=== PATIENT | female | born 1955 | race Caucasian/White ===

== ENCOUNTER 2018-03-28 10:23 | Outpatient (CLI) | payer OTHER | END 2018-03-28 10:24 | disposition home or self-care (01) | LOC: DTY/OP 10:23 | PROVIDERS: ATTEND Specialist | DX: Z01.818 Encounter for other preprocedural examination (principal); E66.01 Morbid (severe) obesity due to excess calories | CPT/HCPCS: 97802 ==

== ENCOUNTER 2018-05-18 12:30 | Inpatient (IN) | payer MEDICARE, BC ==
[2018-05-18 12:16] VITALS: BMI 48.7
[2018-05-22] MEDS ORDERED: Heparin 5,000 UNITS/ML VIAL ONE (06:02)
[2018-05-22] MEDS ORDERED: Ketorolac Tromethamine 30 MG/ML VIAL ONE (06:02)
[2018-05-22] MEDS ORDERED: Scopolamine 1.5 mg/72 hour Patch ONE (06:02)
[2018-05-22] MEDS ORDERED: Bupivacaine/Epinephrine 0.25% 30 ML VIAL ONE (06:28)
[2018-05-22] MEDS ORDERED: Fentanyl 250 MCG/5 ML VIAL ONE (06:30)
[2018-05-22] MEDS ORDERED: cefOXitin Sodium/Dextrose,Iso 2 GM in Premix Bag 1 BAG IVPB SCH (06:45)
--- NOTE | 2018-05-22 07:26 | RAD ---
2 VIEWS CHEST: Date: 05/22/18 HISTORY: Preoperative radiograph. FINDINGS: Two views of the chest show normal sized cardiomediastinal silhouette. There is no evidence of consol idation, mass, or pleural effusion. Degenerative changes are seen in the spine. IMPRESSION: No evidence of acute cardiopulmonary disease. POS: [facility]
[2018-05-22 07:33] LABS: Hemoglobin 15.1 g/dL (12.0-16.0); Mean Corpuscular HGB CONC 33.7 g/dL (32.0-36.0); Mean Corpuscular Hemoglobin 34.1 pg (27.0-31.0); Mean Platelet Volume 9.5 fL (7.4-10.4); Platelet Count 206 thou/uL (130-400); RBC Distribution Width 11.4 % (11.5-14.5); Red Blood Cell (RBC) Count 4.44 mill/uL (4.20-5.40); White Blood Cell (WBC) Count 5.9 thou/uL (4.8-10.8)
[2018-05-22] MEDS ORDERED: Levofloxacin 500 mg/D5W 100 ml Premix Bag ONE (07:48)
[2018-05-22 07:57] LABS: Anion Gap 17 mmol/L (10-20); BUN (Urea Nitrogen) 12 mg/dL (9.8-20.1); Calc. Creatinine Clearance 106 mL/min (70-130); Calcium 9.7 mg/dL (7.8-10.44); Carbon Dioxide 26 mmol/L (23-31); Chloride 97 mmol/L (98-107); Estimated GFR-MDRD 51; Glucose 89 mg/dL (80-115); Potassium 3.5 mmol/L (3.5-5.1); Sodium 136 mmol/L (136-145)
[2018-05-22] MEDS ORDERED: Ondansetron HCl/PF 4 MG/2 ML Vial IVP PRN (08:56)
[2018-05-22] MEDS ORDERED: Promethazine HCl 25 MG/ML VIAL IM PRN ×2 (08:56→12:06)
[2018-05-22] MEDS ORDERED: Promethazine HCl 25 MG/ML VIAL SLOW IVP PRN (08:56)
[2018-05-22] MEDS ORDERED: Fentanyl 100 MCG/2 ML VIAL ONE ×3 (09:35→10:49)
[2018-05-22] MEDS ORDERED: Promethazine HCl 25 MG/ML VIAL ONE (09:46)
[2018-05-22] MEDS ORDERED: HYDROmorphone 2 MG/ML VIAL ONE (10:50)
[2018-05-22] MEDS ORDERED: hydrALAZINE 20 MG/ML VIAL SLOW IVP PRN (12:06)
[2018-05-22] MEDS ORDERED: Dextrose 50% Abboject 50 ML SYRINGE SLOW IVP PRN (12:06)
[2018-05-22] MEDS ORDERED: diphenhydrAMINE 50 MG/ML VIAL IVP PRN (12:06)
[2018-05-22] MEDS ORDERED: Morphine 4 MG/ML VIAL SLOW IVP PRN (12:06)
[2018-05-22] MEDS ORDERED: Dextrose 5% in Water 1,000 ML IV PRN (12:06)
[2018-05-22] MEDS: D5 1/2 NS w/20 mEq KCL 1,000 ML IV SCH ×2 (12:53→19:34)
[2018-05-22] MEDS: Acetaminophen 1,000 MG in Premix Bag 1 BAG IVPB SCH ×3 (12:56→23:01)
[2018-05-22] MEDS: Ketorolac Tromethamine 30 MG/ML VIAL IVP SCH ×3 (12:57→23:01)
[2018-05-22] MEDS: Ondansetron PF 4 MG/2 ML Vial IVP PRN ×2 (13:43→22:14)
[2018-05-22] MEDS ORDERED: Ondansetron PF 4 MG/2 ML Vial ONE (15:12)
[2018-05-22] MEDS ORDERED: PHENYLEPHRINE-NS 100 MCG/ML 10 ML SYRINGE ONE (15:12)
[2018-05-22] MEDS ORDERED: Dexamethasone 20 MG/5 ML VIAL ONE (15:12)
[2018-05-22] MEDS ORDERED: Lidocaine 1% PF 5 ML VIAL ONE (15:12)
[2018-05-22] MEDS ORDERED: PROPOFOL 200 MG/20 ML VIAL ONE (15:12)
[2018-05-22] MEDS ORDERED: Rocuronium Bromide 10 MG/ML (10ML VIAL) ONE (15:12)
[2018-05-22] MEDS ORDERED: ePHEDrine 50 MG/ML VIAL ONE (15:12)
[2018-05-22] MEDS ORDERED: Glycopyrrolate 0.2 MG/ML 5 ML SYRINGE ONE (15:12)
[2018-05-22] MEDS: Morphine 4 MG/ML VIAL SLOW IVP PRN (19:01)
[2018-05-22] MEDS: Enoxaparin Sodium 40 MG/0.4 ML SYRINGE SC SCH (19:34)
[2018-05-23] MEDS: Morphine 4 MG/ML VIAL SLOW IVP PRN ×2 (02:58→16:53)
[2018-05-23] MEDS: D5 1/2 NS w/20 mEq KCL 1,000 ML IV SCH ×4 (04:13→23:12)
[2018-05-23] MEDS: Ketorolac Tromethamine 30 MG/ML VIAL IVP SCH (05:04)
[2018-05-23] MEDS: Acetaminophen 1,000 MG in Premix Bag 1 BAG IVPB SCH ×4 (05:05→23:12)
[2018-05-23 05:20] LABS: #Lymphocytes 0.9 thou/uL (1.20-3.40); #Monocytes 1.3 thou/uL (0.11-0.59); #Neutrophils 10.4 thou/uL (1.40-6.50); %Basophils 0.1 % (0.0-1.0); %Eosinophils 0.1 % (0.0-10.0); %Lymphocytes 7.2 % (21.0-51.0); %Monocytes 10.1 % (0.0-10.0); %Neutrophils 82.3 % (42.0-75.0); Hemoglobin 12.1 g/dL (12.0-16.0); Mean Corpuscular HGB CONC 32.9 g/dL (32.0-36.0); Mean Corpuscular Hemoglobin 34.2 pg (27.0-31.0); Mean Platelet Volume 9.3 fL (7.4-10.4); Platelet Count 206 thou/uL (130-400); RBC Distribution Width 11.4 % (11.5-14.5); Red Blood Cell (RBC) Count 3.53 mill/uL (4.20-5.40); White Blood Cell (WBC) Count 12.7 thou/uL (4.8-10.8)
[2018-05-23 05:43] LABS: Anion Gap 12 mmol/L (10-20); BUN (Urea Nitrogen) 17 mg/dL (9.8-20.1); Calc. Creatinine Clearance 70 mL/min (70-130); Calcium 8.5 mg/dL (7.8-10.44); Carbon Dioxide 23 mmol/L (23-31); Chloride 98 mmol/L (98-107); Estimated GFR-MDRD 32; Glucose 168 mg/dL (80-115); Potassium 4.4 mmol/L (3.5-5.1); Sodium 129 mmol/L (136-145)
--- NOTE | 2018-05-23 08:28 | PRG ---
DATE OF SERVICE: 05/23/2018 SUBJECTIVE: Ms. Wu is postoperative day #1 from laparoscopic sleeve gastrectomy. She is having a tougher time than most patients after the surgery. She had significant nausea yesterday and felt dizzy when she would try to walk. She really has not walked out of her room thus far. She also has not done much with clear liquids. She has been started on ice chips and is taking sips of water, but not any significant volume. Additionally, she has been able unable to void spontaneously and has had to have catheterization performed twice. She denies any severe pain at this time. She did have some narcotics overnight. PHYSICAL EXAMINATION: VITAL SIGNS: On examination, her pulse is 97, blood pressure 97/57, temperature is 98.5. LUNGS: Clear to auscultation. ABDOMEN: Soft. Bowel sounds are hypoactive. Incisions are healing nicely. LABORATORY DATA: Electrolytes reveal her sodium is low at 129. Other electrolytes are normal. Her creatinine has jumped from 1.08 to 1.62. Her hemoglobin is 12.1. White blood cell count is 12.7. ASSESSMENT: The patient is making slower than typical progress after a sleeve gastrectomy. I have encouraged her to try to increase her clear liquid intake and to try to ambulate. I will get a physical therapy consult to help her ambulate with a walker. Hopefully, she will be able to void on her own today. If she does not after another time or 2 then I will need to place a Leung catheter. Job ID: [id number]
[2018-05-23] MEDS: Pantoprazole 40 MG VIAL IVP SCH (08:41)
--- NOTE | 2018-05-23 12:42 | OP ---
DATE OF PROCEDURE: 05/22/2018 PREOPERATIVE DIAGNOSIS: Morbid obesity. POSTOPERATIVE DIAGNOSIS: Morbid obesity PROCEDURE PERFORMED: Laparoscopic vertical sleeve gastrectomy using the ViSiGi device. PUTTY WORKER: Jerilyn Bravo MS-3 ANESTHESIA: General endotracheal. INDICATIONS: The patient is morbidly obese 63-year-old white female. She has undergone thorough preoperative evaluation and education, presents at this time for vertical sleeve gastrectomy. DESCRIPTION OF OPERATION: Informed consent was obtained. The patient was taken to the operating room where general endotracheal anesthesia was obtained with the patient in supine position. Abdomen was prepped with ChloraPrep and draped in sterile fashion. Local anesthetic was infiltrated and 5 mm supraumbilical incision was created through which Veress needle was passed to the peritoneal cavity and pneumoperitoneum established using carbon dioxide up to a pressure of 15 mmHg. A 5 mm trocar port was passed through this same incision. Laparoscopic camera was passed through this port. Under direct vision, 4 additional ports were placed including bilateral 5 mm subcostal ports, a 12 mm right paramedian port and a 15 mm left paramedian port. A 5 mm epigastric incision was created through which Nathansen retractor was passed into the abdominal cavity and used to retract the left lobe of the liver. The patient was placed into reverse Trendelenburg position. The ViSiGi device was advanced within the stomach and used to decompress this. The pylorus was identified and beginning 4 cm proximal to the pylorus, the omentum and vascular tissue along the greater curvature was divided using the LigaSure in an ascending fashion up to the angle of His. All posterior adhesions were mobilized. The short gastric vessels were carefully divided and then hemostasis was maintained using the LigaSure. Once this was completely mobilized, the ViSiGi was carefully positioned at the level of the pylorus and placed to suction, which was clearly defining the lesser curvature of the stomach. The gastrectomy was then performed using a series of fires of the [place] stapler using a green load followed by a gold load and a series of blue loads until completion of the gastrectomy. The ViSiGi along the lesser curvature was used as a size 36 bougie to guide in the gastric division. Care was taken to avoid narrowing the incisura or the gastroesophageal junction. The integrity of the staple line was then assessed by insufflating gas through the ViSiGi while irrigating along the staple line. There was no evidence of an air leak. There was no evidence of bleeding along the staple line. The resected stomach was then removed through the 15 mm port and the fascia was closed with 0 Vicryl suture using a GraNee needle. I then closed the 12 mm port also using the GraNee needle and 0 Vicryl suture. The Nathansen retractor was removed. All ports and instruments were removed under direct vision. All irrigant was aspirated. Pneumoperitoneum was carefully evacuated. 0.25% Marcaine with epinephrine was infiltrated into each port site. Skin edges approximated with 4-0 Monocryl subcuticular suture. Dermabond was placed externally. There were no complications. The patient tolerated the procedure well and was taken to recovery room in stable condition. FINDINGS: The patient had adhesions from her duodenum to the gallbladder fossa from her prior cholecystectomy. This somewhat distorted her distal gastric anatomy and for this reason, I took the time to mobilize the duodenum away from her gallbladder fossa. This was done carefully using the LigaSure device. This surgery was performed without complication or difficulty. There was essentially no blood loss. Hemoclips were placed along the staple line to ensure appropriate hemostasis at areas of concern. There were no complications. Blood loss was negligible. The patient tolerated the procedure well and was taken to the recovery room in stable condition. Job ID: [id number]
[2018-05-23] MEDS ORDERED: Mag-Al 1200 mg/1200 mg/30 ML UDCUP PO PRN (16:50)
[2018-05-23] MEDS: Ondansetron PF 4 MG/2 ML Vial IVP PRN (17:02)
[2018-05-23] MEDS: Enoxaparin Sodium 40 MG/0.4 ML SYRINGE SC SCH (19:50)
[2018-05-24] MEDS: Morphine 4 MG/ML VIAL SLOW IVP PRN ×2 (04:06→10:38)
[2018-05-24] MEDS: Lactated Ringer's 1,000 ML IV SCH ×3 (04:07→06:40)
[2018-05-24 04:26] LABS: #Lymphocytes 1.4 thou/uL (1.20-3.40); #Monocytes 1.3 thou/uL (0.11-0.59); %Basophils 0.4 % (0.0-1.0); %Eosinophils 0.4 % (0.0-10.0); %Lymphocytes 12.8 % (21.0-51.0); %Neutrophils 74.5 % (42.0-75.0); Hemoglobin 10.8 g/dL (12.0-16.0); Mean Corpuscular HGB CONC 32.2 g/dL (32.0-36.0); Platelet Count 170 thou/uL (130-400); RBC Distribution Width 11.5 % (11.5-14.5); Red Blood Cell (RBC) Count 3.18 mill/uL (4.20-5.40); White Blood Cell (WBC) Count 10.7 thou/uL (4.8-10.8)
[2018-05-24 04:29] LABS: Anion Gap 13 mmol/L (10-20); BUN (Urea Nitrogen) 13 mg/dL (9.8-20.1); Calc. Creatinine Clearance 93 mL/min (70-130); Calcium 8.4 mg/dL (7.8-10.44); Carbon Dioxide 22 mmol/L (23-31); Chloride 102 mmol/L (98-107); Estimated GFR-MDRD 44; Glucose 112 mg/dL (80-115); Potassium 4.1 mmol/L (3.5-5.1); Sodium 133 mmol/L (136-145)
[2018-05-24] MEDS: Acetaminophen 1,000 MG in Premix Bag 1 BAG IVPB SCH ×2 (05:33→12:11)
[2018-05-24] MEDS: Ondansetron PF 4 MG/2 ML Vial IVP PRN ×2 (05:37→10:38)
--- NOTE | 2018-05-24 07:28 | CT ---
CT OF THE ABDOMEN AND PELVIS WITH IV CONTRAST: Date: 05/24/18 INDICATION: History of tachycardia. Status post gastric sleeve procedure with upper abdominal pain. FINDINGS: There is enteric contrast seen at the level of the esophagus and within the presence of a small hiata l hernia. No apparent enteric contrast has traversed the gastroplasty site. There is prominent hematoma surrounding the gastric sleeve surgical site. The largest is seen along t he new greater curvature of the stomach measuring 10.7 x 5.7 cm, image 28 of series 2. A small amount of hemorrhage is seen within the lesser curvature on image 27 of series 2 measuring 3.8 cm. There is a hematoma extending into the gastric splenic ligament measuring 5.9 cm. There is a mild amount of h emorrhage within the pericolonic gutters. A small amount of hemorrhage is seen within the pelvis. No active extravasation is grossly evident. The gallbladder is surgically absent. The spleen, pancreas, adrenal glands, and kidneys are normal ap pearing. No focal hepatic lesion is evident. There is a moderate left and small right pleural effusio n with bibasilar atelectasis. Small bowel is of normal caliber. There is a normal appendix in the right lower quadrant. There is scattered colonic diverticula. The b ladder is decompressed with a Leung catheter. Small locules of gas are present within the upper abdom en, consistent with patient's recent postoperative state. There are scattered degenerative and osteoarthritic changes. IMPRESSION: 1. Postprocedural change of a recent gastroplasty procedure with hematomas seen within the surroundi ng region of the gastroplasty site. The largest is along the new greater curvature measuring 10.7 x 5 .6 cm. Mild amount of hemorrhage is seen within the paracolonic gutter and within the pelvis. No acti ve extravasation is grossly evident. 2. Small amount of pneumoperitoneum within the upper abdomen consistent with the patient's recent po stop state. 3. No enteric contrast is seen to traverse the gastroplasty site and may be related to some mild obs tructive physiology from the patient's recent postoperative state at the gastroplasty site. There is no overt evidence to suggest extravasation; however, limited transfer of enteric contrast across the gastroplasty site, limits this evaluation. 4. Moderate left and small right pleural effusion and bibasilar atelectasis. 5. Colonic diverticulosis. 6. Cholecystectomy. 7. Other findings as above. POS: [facility]
--- NOTE | 2018-05-24 08:31 | RAD ---
AP VIEW ABDOMEN: HISTORY: Status post Gastrografin swallow with post gastric surgery. FINDINGS: AP view abdomen is obtained. Surgical clips are seen along the curvature of the stomach. Surgical c lips are also seen in the gallbladder fossa. No dilated loops of small bowel seen. A small amount of gas is seen in the colon. The ingested p.o. contrast previously appears to be likely past the stomach. It is difficult to visu qamar and may have been diluted out predominantly appearing to be in the lower abdomen likely within the small bowel and possibly even colon. IMPRESSION: No definite plain film radiographic evidence of bowel obstruction seen. POS: [facility]
[2018-05-24] MEDS ORDERED: ISOVUE-370 76%-LOCM 1 ML ONE (10:07)
[2018-05-24] MEDS: Pantoprazole 40 MG VIAL IVP SCH ×2 (10:39→20:10)
[2018-05-24 11:08] LABS: #Lymphocytes 1.1 thou/uL (1.20-3.40); #Monocytes 1.7 thou/uL (0.11-0.59); #Neutrophils 8.6 thou/uL (1.40-6.50); %Basophils 0.3 % (0.0-1.0); %Eosinophils 0.3 % (0.0-10.0); %Lymphocytes 9.8 % (21.0-51.0); %Monocytes 14.9 % (0.0-10.0); %Neutrophils 74.9 % (42.0-75.0); Hemoglobin 12.1 g/dL (12.0-16.0); Mean Corpuscular Hemoglobin 33.5 pg (27.0-31.0); Mean Platelet Volume 9.5 fL (7.4-10.4); Platelet Count 165 thou/uL (130-400); RBC Distribution Width 11.5 % (11.5-14.5); Red Blood Cell (RBC) Count 3.62 mill/uL (4.20-5.40); White Blood Cell (WBC) Count 11.5 thou/uL (4.8-10.8)
[2018-05-24] MEDS ORDERED: D5 1/2 NS w/20 mEq KCL 1,000 ML IV SCH (11:15)
[2018-05-24 11:22] LABS: Anion Gap 15 mmol/L (10-20); BUN (Urea Nitrogen) 11 mg/dL (9.8-20.1); Calc. Creatinine Clearance 97 mL/min (70-130); Calcium 9.3 mg/dL (7.8-10.44); Carbon Dioxide 22 mmol/L (23-31); Chloride 103 mmol/L (98-107); Estimated GFR-MDRD 46; Glucose 96 mg/dL (80-115); Potassium 4.4 mmol/L (3.5-5.1); Sodium 136 mmol/L (136-145)
--- NOTE | 2018-05-24 11:42 | CT ---
NONCONTRAST ENHANCED CT IMAGES ABDOMEN: History: Patient with recent upper GI. Perigastric hematoma. Evaluate for passage of ingested oral co ntrast into the bowel and evaluate for possible gastric leak. Technique: Noncontrast enhanced CT images of the abdomen performed. Oral contrast was given as part o f the upper GI series. FINDINGS: A left sided pleural effusion is seen. Left lower lobe areas of consolidation noted. Ingested oral contrast passes the gastric sleeve extending into the duodenum without evidence of exte nsion outside of the gastric lumen. Perigastric hematoma is again seen. No evidence of bowel obstruction seen. IMPRESSION: 1. Ingested PO contrast does extend into the small bowel without evidence of small bowel obstruction or evidence of gastric leaks. 2. Findings conveyed to Dr. Church at 10:05 a.m. 05-24-18. POS: [facility]
--- NOTE | 2018-05-24 11:58 | RAD ---
UPPER GI SERIES: History: Gastric sleeve with possible gastric leak. Technique: 15 ml of Gastrografin was given orally. Spot and overhead images obtained. Radiation dosimetry: 1 minutes, 2 second fluoroscopy; Dose of 168 mGy*cm^2. FINDINGS: Ingested Gastrografin had a two and fro motion staying for several minutes in the mid and distal esop hagus. The contrast passed the GE junction. A sequellae remained in the proximal stomach for several minutes, after approximately 10 minutes it did pass through the gastric lumen into the duodenum. No d efinite evidence of extravasation is seen. IMPRESSION: Delayed but eventual passage of ingested oral contrast through the gastric sleeve. POS: [facility]
--- NOTE | 2018-05-24 12:09 | CON ---
DATE OF CONSULTATION: 05/24/2018 This encompassed 70 minutes of time, of that time, greater than 50% was spent with the patient and/or the patient's unit in the hospital. REASON FOR CONSULTATION: Possible pneumonia. HISTORY OF PRESENT ILLNESS: The patient is a 63-year-old female, who was admitted on Monday for a laparoscopic gastric sleeve surgery. She has developed low-grade fever, some shortness of breath, and cough. She initially had slightly high white blood count that has come down. CT scan suggested left lower lobe infiltrate and mild effusion in that area. Apparently, GI series did not demonstrate any evidence of gastric leak. PAST MEDICAL HISTORY: 1. Anxiety. 2. Obesity. 3. Hypertension. 4. Hypothyroidism. PAST SURGICAL HISTORY: Hysterectomy, tubal ligation, cholecystectomy, and the laparoscopic gastric sleeve. MEDICATIONS: 1. Levothyroxine 175 mcg daily. 2. Triamterene/hydrochlorothiazide 37.5/25 one tablet daily. 3. Metoprolol 100 mg twice daily. 4. Prilosec 10 mg daily. 5. Equate 10 mg daily. 6. Cyclobenzaprine 10 mg daily. 7. Lorazepam 0.5 mg at night. ALLERGIES: CEPHALEXIN, PENICILLIN, SULFAMETHOXAZOLE, AND TRIMETHOPRIM. SOCIAL HISTORY: Never smoker. Does not consume alcohol. Does not use illicit drugs. FAMILY MEDICAL HISTORY: Father had cancer. REVIEW OF SYSTEMS: Positive for shortness of breath, abdominal tenderness around surgical site. PHYSICAL EXAMINATION: VITAL SIGNS: Temperature 98.6, it has been as high as 99.4; pulse 119; respirations 20; O2 sat 97% on room air; and blood pressure 108/71. She is 5 feet 4 inches, weighs 284 pounds. GENERAL: She does not appear to be in any overt distress. HEENT: Pupils react. Sclerae are anicteric. Oropharynx clear. NECK: No adenopathy or JVD. LUNGS: She has diminished breath sounds in the left compared to right with some crackles in left base. CARDIOVASCULAR: S1 and S2, regular. ABDOMEN: I count at least 5 MediPort insertion sites, which appear to be healing well, but she is slightly tender globally throughout the abdomen. EXTREMITIES: No clubbing, cyanosis, or edema. LABORATORY DATA: Sodium 133, potassium 4.1, chloride 102, CO2 of 20, BUN 13, creatinine 1.2, and glucose 112. White blood cell count 11.5, hematocrit 36.7, and platelet count 165. ASSESSMENT: After reviewing the CT, it appears that she may have a left lower lobe pneumonia. This also could be atelectasis. She has a very small effusion, which in my opinion is too small to tap. Potential other febrile sources would include peritonitis from a leak from her surgical site. This was not apparent on scans at this time. PLAN: 1. Empiric antibiotics with Levaquin given her multiple drug allergies. 2. Start EzPAP with DuoNeb. 3. Ambulation if at all possible. 4. We will follow with you. Job ID: [id number]
[2018-05-24 13:19] VITALS: BP 94/67
[2018-05-24] MEDS ORDERED: Metoprolol Tartrate 100 MG TAB PO SCH (13:45)
[2018-05-24] MEDS: D5 1/2 NS w/20 mEq KCL 1,000 ML IV SCH (14:21)
[2018-05-24] MEDS ORDERED: Levothyroxine 175 MCG TAB PO SCH (17:15)
[2018-05-24] MEDS ORDERED: Mag-Al 1200 mg/1200 mg/30 ML UDCUP PO PRN (17:20)
[2018-05-24] MEDS: Metoprolol Tartrate 100 MG TAB PO SCH (20:09)
[2018-05-24] MEDS: Enoxaparin Sodium 40 MG/0.4 ML SYRINGE SC SCH (20:09)
[2018-05-24] MEDS: Hydrocodone-Acetamin 15 ML UDCUP PO PRN (21:07)
--- NOTE | 2018-05-24 21:36 | PRG ---
DATE OF SERVICE: 05/24/2018 SUBJECTIVE: Ms. Wu is postoperative day #2 following laparoscopic sleeve gastrectomy. She was observed for a second day as she was not taking adequate oral intake on postoperative day #1. She also had urinary retention, was unable to void. Early in the morning (about 3:30), I was notified that she was tachycardic with a heart rate of about 130. At that time, she also had relative hypotension. Her systolic blood pressure was approximately 90. She was given an IV fluid bolus and laboratory studies were obtained. Laboratory studies revealed that hemoglobin was down a little bit from 12.1 to 10.8, but her white blood cell count was stable at 10.7 with no significant left shift. Her chemistry panel revealed that her creatinine had improved from 1.6 the day previously down to 1.2. There were no other significant electrolyte abnormalities. A CT scan was then obtained which revealed no evidence of leak within the abdomen. There was evidence of a hematoma between the gastric sleeve and the spleen. There had been a small amount of splenic oozing at the end of the operation. This was not a surprise. She was given a fluid bolus and her tachycardia and hypotension improved. I saw her early this morning and she had not vomited, although she did have some problems with nausea. She had been unable to void and a Leung catheter had been placed, but she actually had good urine output overnight. She denied pain and was not short of breath. There was no tachypnea or dyspnea. Her lungs were clear to auscultation anteriorly. She was using incentive spirometer well. She had a good cough. Her abdomen was entirely benign with incisions that were healing nicely with no peritoneal tenderness at all in any quadrant. She had minimal appropriate geovanni-incisional tenderness. Extremities were unremarkable. I subsequently obtained a swallow study and after I spoke about this with Dr. Rangel, not only did she obtain the swallow, but when the contrast was seen to go through the stomach, a repeat CT scan was obtained. The swallow study revealed normal sleeve anatomy, although the contrast in the end of the stomach immediately. There was no evidence of leak either on the swallow or on the CT scan. I then obtained a consult with Dr. Cortez. It had been noted by Dr. Rangel that there were air bronchograms seen on her recent CT scan consistent with pneumonia. I requested Dr. Cortez to help in evaluating her as well as treating any potential pneumonia. He placed her on Levaquin as well as a few other medications. Later this afternoon, she had seemed to stabilize, but shortly thereafter, her nurse notified me that she had a pulse of about 140. At this point, I requested that she be transferred to the intensive care unit. I also asked that she be given metoprolol as she had not had her dose of metoprolol from yesterday. By the time I finished the operation that I was performed at that time, I went to see her in the intensive care unit, her pulse was 87, and her blood pressure was 135/75. It seemed at that time as though she had rebound tachycardia that was treated by her metoprolol. When I examined her this evening, she was comfortable and resting in bed and denied any pain or problems. She was afebrile and vital signs were normal. She had excellent urine output throughout the day. ASSESSMENT: The patient is progressing slowly after her sleeve. She was encouraged again to increase her oral intake. Her Leung catheter will be left in overnight but removed in the morning. She will be encouraged to increase her activity. Hopefully, she remains stable and her diet can be advanced and she may be ready for discharge tomorrow. Job ID: [id number]
[2018-05-25] MEDS: Hydrocodone-Acetamin 15 ML UDCUP PO PRN ×3 (02:54→15:58)
[2018-05-25] MEDS: Ondansetron PF 4 MG/2 ML Vial IVP PRN (02:55)
[2018-05-25] MEDS ORDERED: Levothyroxine 175 MCG TAB PO SCH (06:00)
[2018-05-25] MEDS: D5 1/2 NS w/20 mEq KCL 1,000 ML IV SCH (06:02)
[2018-05-25 08:17] LABS: #Eosinphils 0.1 thou/uL (0.0-0.7); #Lymphocytes 1.6 thou/uL (1.20-3.40); #Monocytes 1.6 thou/uL (0.11-0.59); #Neutrophils 8.5 thou/uL (1.40-6.50); %Basophils 0.3 % (0.0-1.0); %Eosinophils 0.6 % (0.0-10.0); %Lymphocytes 13.8 % (21.0-51.0); %Monocytes 13.4 % (0.0-10.0); %Neutrophils 71.8 % (42.0-75.0); Mean Corpuscular HGB CONC 32.3 g/dL (32.0-36.0); Mean Corpuscular Hemoglobin 33.5 pg (27.0-31.0); Mean Platelet Volume 9.2 fL (7.4-10.4); Platelet Count 191 thou/uL (130-400); RBC Distribution Width 11.5 % (11.5-14.5); Red Blood Cell (RBC) Count 3.29 mill/uL (4.20-5.40); White Blood Cell (WBC) Count 11.9 thou/uL (4.8-10.8)
--- NOTE | 2018-05-25 08:19 | PRG ---
DATE OF SERVICE: 05/25/2018 SUBJECTIVE: Mona is 100% better compared to yesterday. Once getting the beta-tish, her heart rate came down and her blood pressure actually normalized upwards. OBJECTIVE: VITAL SIGNS: On exam, temperature is 98.1, pulse 92, and blood pressure 137/76 and O2 saturations 100%. HEENT: Unremarkable. NECK: No JVD. CHEST: Clear bilaterally. CARDIAC: S1 and S2, regular. ABDOMEN: Soft. EXTREMITIES: No edema. IMAGING DATA: Chest x-ray shows resolution of the left-sided findings. ASSESSMENT: 1. Atelectasis versus infiltrate, which is better. 2. Tachycardia, resolved. PLAN: Madhu will be removed. It is quite likely she can go home today. I would finish out 5 days of mPortico. Job ID: [id number]
[2018-05-25 08:34] LABS: Anion Gap 13 mmol/L (10-20); BUN (Urea Nitrogen) 11 mg/dL (9.8-20.1); Calc. Creatinine Clearance 110 mL/min (70-130); Calcium 9.2 mg/dL (7.8-10.44); Carbon Dioxide 22 mmol/L (23-31); Chloride 102 mmol/L (98-107); Estimated GFR-MDRD 53; Glucose 93 mg/dL (80-115); Potassium 4.3 mmol/L (3.5-5.1); Sodium 133 mmol/L (136-145)
--- NOTE | 2018-05-25 08:50 | RAD ---
SINGLE VIEW OF THE CHEST: COMPARISON: 05/22/2018. HISTORY: Ventilated patient with respiratory failure. FINDINGS: Single view of the chest shows a normal sized cardiomediastinal silhouette. There is no evidence of c onsolidation, mass, or pleural effusion. The bones are unremarkable. IMPRESSION: No evidence of acute cardiopulmonary disease. POS: [facility]
[2018-05-25] MEDS: Metoprolol Tartrate 100 MG TAB PO SCH (09:10)
[2018-05-25] MEDS: Pantoprazole 40 MG VIAL IVP SCH (09:10)
[2018-05-25 14:30] VITALS: TEMP 98.1
== END 2018-05-25 16:20 | disposition home or self-care (01) | DRG 619 ==
LOC: SURG A 05-22 05:47 → CCU 05-24 14:06
PROVIDERS: ADMIT Specialist; ATTEND Specialist
PROC: 0DB64Z3 Excision of Stomach, Percutaneous Endoscopic Approach, Vertical (ICD-10-PCS; principal; 2018-05-22)
DX: E66.01 Morbid (severe) obesity due to excess calories (principal); J18.9 Pneumonia, unspecified organism; Z68.43 Body mass index [BMI] 50.0-59.9, adult; I10 Essential (primary) hypertension; M25.50 Pain in unspecified joint; Z68.42 Body mass index [BMI] 45.0-49.9, adult; R33.9 Retention of urine, unspecified; R00.0 Tachycardia, unspecified; M54.5 Low back pain; G47.30 Sleep apnea, unspecified; E03.9 Hypothyroidism, unspecified; F41.9 Anxiety disorder, unspecified; M19.90 Unspecified osteoarthritis, unspecified site; K21.9 Gastro-esophageal reflux disease without esophagitis; Z79.899 Other long term (current) drug therapy; Z88.0 Allergy status to penicillin; Z88.2 Allergy status to sulfonamides; Z88.8 Allergy status to other drugs, medicaments and biological substances
CPT/HCPCS: 36415; 71045; 71046; 74018; 74150; 74177; 74241; 80048; 85025; 85027; 88307; 88312; 93005; 93010; 94640; 94760; C9113; J0131; J1100; J1170; J1644; J1650; J1885; J1956; J2001; J2270; J2405; J2550; J2704; J3010; J3490; J7620; Q9966

== ENCOUNTER 2020-03-18 06:48 | Outpatient (CLI) | payer MEDICARE, BC ==
[2020-03-18 11:53] LABS: Bilirubin Neg (Negative); Blood, Urine Negative (Negative); Clarity Clear (Clear); Glucose, Urine (Dipstick) Normal (Negative); Ketone, Urine Negative (Negative); Leukocyte 25 (Negative); Nitrite Negative (Negative); Protein, Urine (Dipstick) Negative (Neg-Trace); Urobilinogen Normal mg/dL (Less than 2)
[2020-03-18 12:05] LABS: #Eosinphils 0.1 10x3/uL (0.0-0.5); #Monocytes 0.6 10x3/uL (0.0-1.1); #Neutrophils 2.8 10x3/uL (1.5-8.4); %Basophils 0.8 % (0.0-2.0); %Eosinophils 2.7 % (0.0-6.0); %Lymphocytes 31.4 % (18.0-47.0); %Monocytes 10.8 % (0.0-10.0); %Neutrophils 54.1 % (40.0-75.0); Hemoglobin 14.9 g/dL (12.0-16.0); Mean Corpuscular HGB CONC 32.3 G/DL (32.0-36.0); Mean Corpuscular Hemoglobin 32.2 PG (27.0-33.0); Mean Corpuscular Volume 99.6 fl (80.0-100.0); Mean Platelet Volume 11.2 fl (7.4-10.4); Platelet Count 221 10x3/uL (130-400); RBC Distribution Width 12.3 % (11.5-14.5); Red Blood Cell (RBC) Count 4.63 10x6/uL (3.90-5.20); White Blood Cell (WBC) Count 5.2 10x3/uL (4.5-11.0)
[2020-03-18 12:08] LABS: Anion Gap 14 mmol/L (10-20); BUN (Urea Nitrogen) 17 mg/dL (9.8-20.1); Calc. Creatinine Clearance 0 mL/min (70-130); Calcium 9.2 mg/dL (7.8-10.44); Carbon Dioxide 27 mmol/L (23-31); Chloride 104 mmol/L (98-107); Glucose 94 mg/dL (80-115); Potassium 4.2 mmol/L (3.5-5.1); Sodium 141 mmol/L (136-145)
[2020-03-18 12:09] LABS: RBC/HPF 0-3 HPF (0-3)
[2020-03-18 12:10] LABS: Bacteria/HPF 1+ HPF (None Seen); Squamous Epithelial 0-3 HPF (0-3)
[2020-03-18 12:20] LABS: INR-International Normal Ratio 1.1; Prothrombin Time 11.3 sec (9.5-12.1)
--- NOTE | 2020-03-18 20:34 | EKG ---
Test Reason : Blood Pressure : / mmHG Vent. Rate : 056 BPM Atrial Rate : 056 BPM P-R Int : 162 ms QRS Dur : 112 ms QT Int : 452 ms P-R-T Axes : -05 -64 012 degrees QTc Int : 436 ms Sinus bradycardia Left axis deviation Low voltage QRS Possible Anterolateral infarct , age undetermined Abnormal ECG No previous ECGs available Confirmed by LOBITO REYNOSO, DR. Bernal ([id number]) on 03/18/2020 8:34:40 PM Referred By: KALI Confirmed By:DR. Dolores ROBIN MD
[2020-03-18 22:45] LABS: SARS-CoV-2 MS2 Positive; SARS-CoV-2 N Gene Negative; SARS-CoV-2 S Gene Negative; SARS-CoV-2 by NAA Not Detected (NotDetected); SARS-CoV-2 orf1ab Negative
== END 2020-03-18 06:49 | disposition home or self-care (01) ==
LOC: LABBT 06:48
PROVIDERS: ATTEND Orthopaedic Surgery
DX: Z01.818 Encounter for other preprocedural examination (principal); Z20.828 Contact with and (suspected) exposure to other viral communicable diseases; M16.11 Unilateral primary osteoarthritis, right hip
CPT/HCPCS: 80048; 81001; 85025; 85610; 87081; 93005; U0003; 87635; 93010

== ENCOUNTER 2020-03-18 11:00 | Inpatient (IN) | payer MEDICARE, BC ==
[2020-03-18 09:25] VITALS: BMI 33.1
[2020-03-24] MEDS ORDERED: Levofloxacin 500 mg/D5W 100 ml Premix Bag ONE (07:09)
[2020-03-24] MEDS ORDERED: Tranexamic Acid 1,000 MG/10 ML VIAL ONE ×2 (07:09→11:27)
[2020-03-24] MEDS ORDERED: Sodium Chloride 0.9% 100 ML ONE (07:09)
[2020-03-24] MEDS ORDERED: Vancomycin 1.5 GRAM/300 ML BAG ONE (07:10)
[2020-03-24] MEDS ORDERED: Fentanyl 100 MCG/2 ML VIAL ONE ×4 (07:32→11:27)
[2020-03-24] MEDS ORDERED: Midazolam HCl 2 mg/2 ml Vial ONE (07:32)
[2020-03-24] MEDS ORDERED: Famotidine/PF 20 mg/2ml Vial ONE ×2 (08:32→09:16)
[2020-03-24] MEDS ORDERED: Scopolamine 1.5 mg/72 hour Patch ONE (08:32)
[2020-03-24] MEDS ORDERED: Promethazine HCl 25 MG/ML VIAL IM PRN ×3 (08:53→10:04)
[2020-03-24] MEDS ORDERED: Zolpidem Tartrate 5 MG TAB PO PRN ×2 (08:53→09:15)
[2020-03-24] MEDS ORDERED: Ondansetron PF 4 MG/2 ML Vial IVP PRN ×2 (08:53→09:15)
[2020-03-24] MEDS ORDERED: Acetaminophen 325 MG TAB PO PRN (08:53)
[2020-03-24] MEDS ORDERED: HYDROcodone/Acetaminophen 10/325 mg Tablet PO PRN ×2 (08:53)
[2020-03-24] MEDS ORDERED: diphenhydrAMINE 25 MG CAP PO PRN ×2 (08:53→09:15)
[2020-03-24] MEDS ORDERED: Lorazepam 0.5 MG TAB PO PRN (08:56)
[2020-03-24] MEDS ORDERED: Levothyroxine 175 MCG TAB PO SCH (09:00)
[2020-03-24] MEDS ORDERED: traMADol HCl 50 MG TAB PO PRN ×2 (09:15)
[2020-03-24] MEDS ORDERED: Promethazine HCl 25 MG SUPP PR PRN (09:15)
[2020-03-24] MEDS ORDERED: Naloxone HCl 0.4 mg/ml Vial IVP PRN (09:15)
[2020-03-24] MEDS ORDERED: Bupivacaine 0.25% 10 ML VIAL EPIDURAL PRN (09:15)
[2020-03-24] MEDS ORDERED: diphenhydrAMINE 50 MG/ML VIAL IVP PRN (09:15)
[2020-03-24] MEDS ORDERED: Naloxone HCl 0.4 mg/ml Vial IV PRN (09:15)
[2020-03-24] MEDS ORDERED: Hydrocerin (Eucerin) Cream 120 gm Jar TOP PRN (09:15)
[2020-03-24] MEDS ORDERED: diphenhydrAMINE 50 MG/ML VIAL IM PRN (09:15)
[2020-03-24] MEDS ORDERED: Bupivacaine 0.25% HCL 30 ML VIAL ONE (09:16)
[2020-03-24] MEDS ORDERED: Ketorolac Tromethamine 30 MG/ML VIAL ONE ×2 (10:02→13:01)
[2020-03-24] MEDS ORDERED: Glycopyrrolate 0.2 MG/ML 5 ML SYRINGE ONE (10:02)
[2020-03-24] MEDS ORDERED: PROPOFOL 200 MG/20 ML VIAL ONE (10:02)
[2020-03-24] MEDS ORDERED: Rocuronium Bromide 10 MG/ML (10ML VIAL) ONE (10:02)
[2020-03-24] MEDS ORDERED: Dexamethasone 20 MG/5 ML VIAL ONE (10:02)
[2020-03-24] MEDS ORDERED: Ondansetron PF 4 MG/2 ML Vial ONE (10:02)
[2020-03-24] MEDS ORDERED: Lidocaine 1% PF 5 ML VIAL ONE (10:02)
[2020-03-24] MEDS ORDERED: PACU-Morphine 4MG/ML VIAL SLOW IVP PRN (10:04)
[2020-03-24] MEDS ORDERED: Promethazine HCl 25 MG/ML VIAL SLOW IVP PRN (10:04)
[2020-03-24] MEDS ORDERED: Lidocaine 1.5% w/Epi 1:200K 30 ML VIAL (Epid Use) ONE (10:41)
--- NOTE | 2020-03-24 12:06 | OP ---
DATE OF PROCEDURE: 03/24/2020 TITLE OF PROCEDURE: Right total hip arthroplasty using a Romy Accolade II size 3 stem, 48-mm Trident II cup with a 36 liner and a 36, -2.5 ceramic head, 2 screws were used in the acetabulum. FILLING STATION LABORER: Pankaj Irvin PA-C BLOOD LOSS: 200. SPECIMENS: None. DRAINS: None. COMPLICATIONS: None. The optometry assistant/co-surgeon was present through the entire procedure and was responsible for providing exposure, tissue retraction and any necessary limb or tissue manipulation required to obtain necessary reduction or hardware placement. The optometry assistant/co-surgeon also provided bleeding control, tissue closure, and suturing in conjunction with the primary surgeon. PROCEDURE IN DETAIL: After informed consent was obtained in the preoperative holding area, the patient was taken to the operative suite where general anesthesia was induced. The patient was then positioned in the lateral decubitus position. The hip was then prepped and draped in usual sterile fashion. The patient received preoperative antibiotics. Prior to incision, time-out was called and all members of the surgical team agreed upon site, surgeon, and patient. After this, a longitudinal incision was made directly over the trochanter, noted by palpation extending 2 fingerbreadths above and below the trochanter. The deeper subcutaneous layer was undermined with Bovie electrocautery. The iliotibial band was encountered and incised sharply and the plane below this was developed bluntly. A Charnley retractor was placed to hold this opened. The lateral aspect of the trochanter and the abductor muscles were encountered and then reflected anteriorly off the trochanter using Bovie electrocautery. Once this was completed, the anterior capsule was then encountered and identified and copious capsulotomy was carried out, exposing the femoral neck and head. Dislocation maneuver was then performed and an in situ provisional neck cut was then made using the oscillating saw. Attention was then turned to acetabular preparation and sequential reaming was carried out up to the appropriate diameter. A trial was then malleted into place with good firm resistance and no pullout. The permanent acetabular shell was then malleted squarely into place, as was the appropriate liner. Once completed, the wound was copiously irrigated and attention was then turned to femoral preparation. Flexion and external rotation were performed of the exposed thigh and femoral elevators were then placed at the proximal aspect of the wound. Canal finder was used to establish the length of the canal and sequential reaming was carried out, followed by broaching. Once the appropriate stability was established with the trial broaches with flexion, extension and rotational stability, we did trial with neutral and 2 mm offset incremental necks. Once the appropriate size was decided upon, with good stability noted with flexion, extension, internal and external rotation and shuck being negative, we removed the femoral trial broach and malleted into place the permanent prosthesis with good firm fit, which was also stable to rotation. Again, the hip felt very stable to flexion, extension, internal and external rotation. Leg lengths appeared near anatomic clinically and we were quite happy with prosthesis placement. Copious irrigation was then carried out through the entirety of the wound. Primary closure of the abductors was accomplished with interrupted #2 Vicryl [id number] stitches and the IT band was then closed with interrupted #2 Vicryl, oversewn with a #2 running barbed Quill stitch. Subcutaneous fascia was closed with running barbed Quill stitch and a subcuticular Monocryl barbed Quill stitch was used for skin closure and augmented with skin cement. A sterile dressing was applied. The procedure was terminated without any complication. All counts were correct. The patient was awakened in the operative suite and taken to the recovery room in stable condition. Job ID: [id number]
--- NOTE | 2020-03-24 12:07 | RAD ---
2 views right hip: 03/24/2020 COMPARISON: None HISTORY: Evaluate hip following arthroplasty FINDINGS: There is postoperative gas laterally. There is a right hip arthroplasty with no evidence fo r acute fracture or dislocation. IMPRESSION: Radiographic evidence of recent right hip arthroplasty.
[2020-03-24] MEDS ORDERED: Promethazine HCl 25 MG/ML VIAL ONE (12:22)
[2020-03-24] MEDS ORDERED: Ketorolac Tromethamine 30 MG/ML VIAL IVP SCH (14:00)
[2020-03-24] MEDS: Ferrous Gluconate 324 MG TAB PO SCH ×2 (15:54→20:49)
[2020-03-24] MEDS: Aspirin 81 mg Enteric Coated Tablet PO SCH ×2 (15:54→20:38)
[2020-03-24] MEDS: Multivitamin W/ Minerals 1 TAB PO SCH (15:55)
[2020-03-24] MEDS: Senokot S 8.6-50 MG TAB PO SCH ×2 (15:55→20:49)
[2020-03-24] MEDS: Sodium Chloride 0.9% 1,000 ML IV SCH ×2 (15:55→18:50)
[2020-03-24] MEDS: Ketorolac Tromethamine 30 MG/ML VIAL IVP SCH ×3 (15:55→23:18)
[2020-03-24] MEDS: Metoprolol Tartrate 100 MG TAB PO SCH ×2 (15:55→20:38)
[2020-03-24] MEDS ORDERED: Vancomycin HCl 1.5 GM in Sodium Chloride 0.9% 250 ML 300 ML IVPB SCH (19:00)
[2020-03-25] MEDS: fentaNYL Citrate/PF 500 MCG, Bupivacaine 10 ML in Sodium Chloride 0.9% 80 ML EPIDURAL SCH ×2 (03:08→19:55)
[2020-03-25] MEDS: Sodium Chloride 0.9% 1,000 ML IV SCH ×2 (05:06→15:32)
[2020-03-25] MEDS: Ketorolac Tromethamine 30 MG/ML VIAL IVP SCH ×3 (05:33→17:55)
[2020-03-25] MEDS: Levothyroxine Sodium 125 MCG TAB PO SCH (05:33)
[2020-03-25 07:05] LABS: Hemoglobin 11.4 g/dL (12.0-16.0); Mean Corpuscular HGB CONC 32.9 g/dL (32.0-36.0); Mean Corpuscular Hemoglobin 33.1 pg (27.0-31.0); Mean Platelet Volume 8.8 fL (7.4-10.4); Platelet Count 156 thou/uL (130-400); RBC Distribution Width 11.2 % (11.5-14.5); Red Blood Cell (RBC) Count 3.45 mill/uL (4.20-5.40); White Blood Cell (WBC) Count 10.3 thou/uL (4.8-10.8)
[2020-03-25] MEDS: Senokot S 8.6-50 MG TAB PO SCH ×2 (09:22→19:54)
[2020-03-25] MEDS: Aspirin 81 mg Enteric Coated Tablet PO SCH ×2 (09:22→19:54)
[2020-03-25] MEDS: Ferrous Gluconate 324 MG TAB PO SCH ×2 (09:23→19:54)
[2020-03-25] MEDS: Metoprolol Tartrate 100 MG TAB PO SCH ×2 (09:23→19:55)
[2020-03-25] MEDS: Multivitamin W/ Minerals 1 TAB PO SCH (09:23)
[2020-03-25] MEDS: HYDROcodone/Acetaminophen 5/325 mg Tablet PO PRN ×3 (09:25→18:00)
[2020-03-25] MEDS ORDERED: Pantoprazole 40 MG VIAL IVP PRN (18:58)
[2020-03-25] MEDS ORDERED: Sodium Chloride 0.9% (PF) 10 ML VIAL FS PRN (19:00)
[2020-03-26] MEDS: Ketorolac Tromethamine 30 MG/ML VIAL IVP SCH ×2 (00:01→05:55)
[2020-03-26] MEDS: Sodium Chloride 0.9% 1,000 ML IV SCH ×2 (01:43→16:54)
[2020-03-26] MEDS: Levothyroxine Sodium 125 MCG TAB PO SCH (05:54)
[2020-03-26] MEDS: Senokot S 8.6-50 MG TAB PO SCH (10:19)
[2020-03-26] MEDS: Aspirin 81 mg Enteric Coated Tablet PO SCH (10:19)
[2020-03-26] MEDS: Multivitamin W/ Minerals 1 TAB PO SCH (10:19)
[2020-03-26] MEDS: Ferrous Gluconate 324 MG TAB PO SCH (10:20)
[2020-03-26] MEDS: HYDROcodone/Acetaminophen 5/325 mg Tablet PO PRN ×2 (10:20→16:48)
[2020-03-26] MEDS: Metoprolol Tartrate 100 MG TAB PO SCH (10:21)
[2020-03-26 13:20] VITALS: TEMP 97.5
[2020-03-26 16:28] VITALS: BP 104/71
--- NOTE | 2020-03-30 11:04 | DIS ---
DATE OF ADMISSION: 03/24/2020 DATE OF DISCHARGE: 03/26/2020 This is Pankaj Irvin PA-C dictating a report for Bruce Tran MD. PREOPERATIVE DIAGNOSES: Right hip osteoarthritis/degenerative joint disease. POSTOPERATIVE DIAGNOSES: Right hip osteoarthritis/degenerative joint disease. PROCEDURE PERFORMED: The patient underwent a right total hip replacement. HOSPITAL COURSE: Hospital stay was unremarkable. The patient was admitted to [place] [address], where she worked with Staff, Physical Therapy, Occupational Therapy, and progressed quite well. By postop day 2, she was ready to discharge home. DISCHARGE CONDITION: Good/stable. DISPOSITION: Home with family. FOLLOWUP: Would be in 2 to 4 weeks or sooner if there are problems and/or concerns. DISCHARGE MEDICATIONS: Given with usage instructions. Job ID: [id number]
== END 2020-03-26 18:08 | disposition home or self-care (01) | DRG 470 ==
LOC: SURG A 03-24 06:14 → SURG B 03-24 14:55
PROVIDERS: ADMIT Orthopaedic Surgery; ATTEND Orthopaedic Surgery
PROC: 0SR9049 Replacement of Right Hip Joint with Ceramic on Polyethylene Synthetic Substitute, Cemented, Open Approach (ICD-10-PCS; principal; 2020-03-24)
DX: M16.11 Unilateral primary osteoarthritis, right hip (principal); Z88.0 Allergy status to penicillin; Z88.2 Allergy status to sulfonamides; Z88.8 Allergy status to other drugs, medicaments and biological substances; Z88.6 Allergy status to analgesic agent; Z90.49 Acquired absence of other specified parts of digestive tract; Z90.710 Acquired absence of both cervix and uterus; Z98.84 Bariatric surgery status; Z98.51 Tubal ligation status; F41.9 Anxiety disorder, unspecified; I10 Essential (primary) hypertension; E66.9 Obesity, unspecified; E03.9 Hypothyroidism, unspecified; Z79.890 Hormone replacement therapy; Z79.899 Other long term (current) drug therapy; Z88.1 Allergy status to other antibiotic agents; Z68.33 Body mass index [BMI] 33.0-33.9, adult
CPT/HCPCS: 85027; C1713; C1776; J0690; J1100; J1885; J1956; J2001; J2250; J2405; J2550; J2704; J3010; J3370; J3490; J7050; S0020; S0028

== ENCOUNTER 2020-07-16 13:29 | Outpatient (CLI) | payer MEDICARE, BC ==
[2020-07-16 14:14] LABS: #Eosinphils 0.2 10x3/uL (0.0-0.5); #Monocytes 0.8 10x3/uL (0.0-1.1); %Basophils 0.6 % (0.0-2.0); %Eosinophils 2.9 % (0.0-6.0); %Lymphocytes 26.2 % (18.0-47.0); %Monocytes 11.1 % (0.0-10.0); %Neutrophils 59.1 % (40.0-75.0); Hemoglobin 14.9 g/dL (12.0-15.5); Mean Corpuscular HGB CONC 32.7 g/dL (32.0-36.0); Mean Corpuscular Hemoglobin 31.3 pg (27.0-33.0); Mean Corpuscular Volume 95.6 fl (81.6-98.3); Mean Platelet Volume 11.1 fl (7.4-10.4); Platelet Count 212 10x3/uL (150-450); RBC Distribution Width 12.1 % (11.5-14.5); Red Blood Cell (RBC) Count 4.76 10x6/uL (3.90-5.03); White Blood Cell (WBC) Count 6.8 10x3/uL (3.5-10.5)
[2020-07-16 14:26] LABS: Anion Gap 14 mmol/L (10-20); BUN (Urea Nitrogen) 20 mg/dL (9.8-20.1); Calc. Creatinine Clearance 0 mL/min (70-130); Calcium 9.4 mg/dL (7.8-10.44); Carbon Dioxide 26 mmol/L (23-31); Chloride 104 mmol/L (98-107); Glucose 85 mg/dL (80-115); Potassium 4.4 mmol/L (3.5-5.1); Sodium 140 mmol/L (136-145)
[2020-07-16 14:34] LABS: Prothrombin Time 11.4 sec (9.5-12.1)
[2020-07-17 02:14] LABS: SARS-CoV-2 PCR by NAA Not Detected (NotDetected)
== END 2020-07-16 13:30 | disposition home or self-care (01) ==
LOC: LABBT 13:29
PROVIDERS: ATTEND Orthopaedic Surgery
DX: Z01.812 Encounter for preprocedural laboratory examination (principal); M17.12 Unilateral primary osteoarthritis, left knee; Z20.822 Contact with and (suspected) exposure to COVID-19
CPT/HCPCS: 80048; 85025; 85610; 87081; U0003; U0005; 87635

== ENCOUNTER 2020-07-16 13:30 | Inpatient (IN) | payer MEDICARE, BC ==
[2020-07-20 12:05] VITALS: BMI 33.1
[2020-07-21] MEDS ORDERED: Sodium Chloride 0.9% 100 ML ONE (08:07)
[2020-07-21] MEDS ORDERED: Tranexamic Acid 1,000 MG/10 ML VIAL ONE (08:07)
[2020-07-21] MEDS ORDERED: Levofloxacin 500 mg/D5W 100 ml Premix Bag ONE (08:07)
[2020-07-21] MEDS ORDERED: Vancomycin 1.5 GRAM/300 ML BAG 1.5 GM in Premix Bag 1 BAG IVPB SCH (08:15)
[2020-07-21] MEDS ORDERED: Midazolam HCl 2 mg/2 ml Vial ONE (08:21)
[2020-07-21] MEDS ORDERED: Fentanyl 100 MCG/2 ML VIAL ONE ×2 (08:21→08:54)
[2020-07-21] MEDS ORDERED: Ondansetron PF 4 MG/2 ML Vial ONE ×2 (08:23→09:15)
[2020-07-21] MEDS ORDERED: Scopolamine 1.5 mg/72 hour Patch ONE (08:23)
[2020-07-21] MEDS ORDERED: diphenhydrAMINE 50 MG/ML VIAL IM PRN (08:45)
[2020-07-21] MEDS ORDERED: HYDROcodone/Acetaminophen 5/325 mg Tablet PO PRN ×2 (08:45)
[2020-07-21] MEDS ORDERED: Bupivacaine 0.25% 10 ML VIAL EPIDURAL PRN (08:45)
[2020-07-21] MEDS ORDERED: diphenhydrAMINE 50 MG/ML VIAL IVP PRN (08:45)
[2020-07-21] MEDS ORDERED: Promethazine HCl 25 MG/ML VIAL IM PRN ×2 (08:45→08:48)
[2020-07-21] MEDS ORDERED: Naloxone HCl 0.4 mg/ml Vial IVP PRN (08:45)
[2020-07-21] MEDS ORDERED: Zolpidem Tartrate 5 MG TAB PO PRN ×2 (08:45→08:48)
[2020-07-21] MEDS ORDERED: Promethazine HCl 25 MG SUPP PR PRN (08:45)
[2020-07-21] MEDS ORDERED: traMADol HCl 50 MG TAB PO PRN ×2 (08:45)
[2020-07-21] MEDS ORDERED: Ondansetron PF 4 MG/2 ML Vial IVP PRN ×2 (08:45→08:48)
[2020-07-21] MEDS ORDERED: Hydrocerin (Eucerin) Cream 120 gm Jar TOP PRN (08:45)
[2020-07-21] MEDS ORDERED: Naloxone HCl 0.4 mg/ml Vial IV PRN (08:45)
[2020-07-21] MEDS ORDERED: diphenhydrAMINE 25 MG CAP PO PRN ×2 (08:45→08:48)
[2020-07-21] MEDS ORDERED: Acetaminophen 325 MG TAB PO PRN (08:48)
[2020-07-21] MEDS ORDERED: HYDROcodone/Acetaminophen 10/325 mg Tablet PO PRN ×2 (08:48)
[2020-07-21] MEDS ORDERED: Fentanyl 100 MCG/2 ML VIAL SLOW IVP PRN ×2 (08:48)
[2020-07-21] MEDS ORDERED: Lorazepam 0.5 MG TAB PO PRN (08:50)
[2020-07-21] MEDS ORDERED: Aspirin 81 mg Enteric Coated Tablet PO SCH (09:00)
[2020-07-21] MEDS ORDERED: Lidocaine 1.5% w/Epi 1:200K 30 ML VIAL (Epid Use) ONE (09:15)
[2020-07-21] MEDS ORDERED: Rocuronium Bromide 50 MG/5 ML VIAL ONE (09:15)
[2020-07-21] MEDS ORDERED: PROPOFOL 200 MG/20 ML VIAL ONE (09:15)
[2020-07-21] MEDS ORDERED: Dexamethasone 20 MG/5 ML VIAL ONE (09:15)
[2020-07-21] MEDS ORDERED: Glycopyrrolate 0.2 MG/ML 5 ML SYRINGE ONE (09:15)
[2020-07-21] MEDS ORDERED: Lidocaine 1% PF 5 ML VIAL ONE (09:15)
[2020-07-21] MEDS ORDERED: ePHEDrine Sulfate 50 MG/10 ML VIAL ONE (09:15)
[2020-07-21] MEDS: Metoprolol Tartrate 100 MG TAB PO SCH ×2 (18:14→21:27)
[2020-07-21] MEDS: Aspirin 81 mg Enteric Coated Tablet PO SCH ×2 (18:14→21:27)
[2020-07-21] MEDS: Ketorolac Tromethamine 30 MG/ML VIAL IVP SCH ×2 (18:14→19:01)
[2020-07-21] MEDS ORDERED: Vancomycin HCl 1.5 GM in Sodium Chloride 0.9% 250 ML 300 ML IVPB SCH (21:00)
[2020-07-22] MEDS: Ketorolac Tromethamine 30 MG/ML VIAL IVP SCH ×5 (00:34→23:59)
[2020-07-22] MEDS: fentaNYL Citrate/PF 500 MCG, Bupivacaine 10 ML in Sodium Chloride 0.9% 80 ML EPIDURAL SCH ×2 (03:07→19:30)
[2020-07-22] MEDS: Levothyroxine Sodium 125 MCG TAB PO SCH (05:30)
[2020-07-22 05:57] LABS: Mean Platelet Volume 9.4 fL (7.4-10.4); Platelet Count 150 thou/uL (130-400); RBC Distribution Width 11.4 % (11.5-14.5); Red Blood Cell (RBC) Count 3.63 mill/uL (4.20-5.40); White Blood Cell (WBC) Count 9.6 thou/uL (4.8-10.8)
[2020-07-22] MEDS: Senokot S 8.6-50 MG TAB PO SCH ×2 (10:25→21:09)
[2020-07-22] MEDS: Multivitamin W/ Minerals 1 TAB PO SCH (10:25)
[2020-07-22] MEDS: Aspirin 81 mg Enteric Coated Tablet PO SCH ×2 (10:25→21:09)
[2020-07-22] MEDS: Ferrous Gluconate 324 MG TAB PO SCH ×2 (10:26→18:53)
[2020-07-22] MEDS: Metoprolol Tartrate 100 MG TAB PO SCH ×2 (10:26→21:09)
[2020-07-23] MEDS: Ketorolac Tromethamine 30 MG/ML VIAL IVP SCH (05:31)
[2020-07-23] MEDS: Levothyroxine Sodium 125 MCG TAB PO SCH (05:31)
[2020-07-23 06:33] LABS: Hemoglobin 10.8 g/dL (12.0-16.0); Mean Corpuscular HGB CONC 33.1 g/dL (32.0-36.0); Mean Corpuscular Hemoglobin 32.4 pg (27.0-31.0); Mean Corpuscular Volume 97.7 fL (78.0-98.0); Mean Platelet Volume 9.2 fL (7.4-10.4); Platelet Count 115 thou/uL (130-400); RBC Distribution Width 11.4 % (11.5-14.5); Red Blood Cell (RBC) Count 3.34 mill/uL (4.20-5.40); White Blood Cell (WBC) Count 7.6 thou/uL (4.8-10.8)
[2020-07-23] MEDS: Senokot S 8.6-50 MG TAB PO SCH (08:29)
[2020-07-23] MEDS: Metoprolol Tartrate 100 MG TAB PO SCH (08:30)
[2020-07-23] MEDS: Aspirin 81 mg Enteric Coated Tablet PO SCH (08:30)
[2020-07-23] MEDS: Multivitamin W/ Minerals 1 TAB PO SCH (08:30)
[2020-07-23] MEDS: Ferrous Gluconate 324 MG TAB PO SCH (08:30)
[2020-07-23 14:17] VITALS: BP 115/66; TEMP 99
== END 2020-07-23 14:46 | disposition home or self-care (01) | DRG 470 ==
LOC: SURG A 07-21 06:27 → SJJU 07-21 16:45
PROVIDERS: ADMIT Orthopaedic Surgery; ATTEND Orthopaedic Surgery
PROC: 0SRB039 Replacement of Left Hip Joint with Ceramic Synthetic Substitute, Cemented, Open Approach (ICD-10-PCS; principal; 2020-07-21)
DX: M16.12 Unilateral primary osteoarthritis, left hip (principal); Z20.822 Contact with and (suspected) exposure to COVID-19; I25.10 Atherosclerotic heart disease of native coronary artery without angina pectoris; J43.9 Emphysema, unspecified; I10 Essential (primary) hypertension; J30.2 Other seasonal allergic rhinitis; E03.9 Hypothyroidism, unspecified; E66.01 Morbid (severe) obesity due to excess calories; Z90.710 Acquired absence of both cervix and uterus; Z88.1 Allergy status to other antibiotic agents; Z88.2 Allergy status to sulfonamides; Z88.0 Allergy status to penicillin; Z79.82 Long term (current) use of aspirin; Z79.899 Other long term (current) drug therapy; Z68.33 Body mass index [BMI] 33.0-33.9, adult
CPT/HCPCS: 36415; 85027; J1100; J1885; J1956; J2001; J2250; J2405; J2704; J3010; J3370; J3490; J7050; Q0163

== ENCOUNTER 2021-02-04 13:17 | Outpatient (CLI) | payer MEDICARE, BC ==
[2021-02-04 15:03] LABS: #Basophils 0.1 10x3/uL (0.0-0.2); #Eosinphils 0.2 10x3/uL (0.0-0.5); #Monocytes 0.8 10x3/uL (0.0-1.1); #Neutrophils 3.5 10x3/uL (1.5-8.4); %Basophils 0.9 % (0.0-2.0); %Eosinophils 3.1 % (0.0-6.0); %Lymphocytes 28.2 % (18.0-47.0); %Neutrophils 54.6 % (40.0-75.0); Hemoglobin 14.7 g/dL (12.0-15.5); Mean Corpuscular HGB CONC 33.3 g/dL (32.0-36.0); Mean Corpuscular Hemoglobin 32.1 pg (27.0-33.0); Mean Corpuscular Volume 96.5 fl (81.6-98.3); Mean Platelet Volume 11.3 fl (7.4-10.4); Platelet Count 226 10x3/uL (150-450); RBC Distribution Width 12.8 % (11.5-14.5); Red Blood Cell (RBC) Count 4.58 10x6/uL (3.90-5.03); White Blood Cell (WBC) Count 6.4 10x3/uL (3.5-10.5)
[2021-02-04 15:08] LABS: Prothrombin Time 11.1 sec (9.5-12.1)
[2021-02-04 15:10] LABS: Anion Gap 15 mmol/L (10-20); BUN (Urea Nitrogen) 19 mg/dL (9.8-20.1); Calc. Creatinine Clearance 0 mL/min (70-130); Calcium 9.5 mg/dL (7.8-10.44); Carbon Dioxide 26 mmol/L (23-31); Chloride 104 mmol/L (98-107); Glucose 81 mg/dL (80-115); Potassium 4.6 mmol/L (3.5-5.1); Sodium 140 mmol/L (136-145)
[2021-02-05 11:54] LABS: SARS-CoV-2 PCR by NAA Not Detected (NotDetected)
== END 2021-02-04 13:18 | disposition home or self-care (01) ==
LOC: LABBT 13:17
PROVIDERS: ATTEND Orthopaedic Surgery
DX: Z01.812 Encounter for preprocedural laboratory examination (principal); M17.11 Unilateral primary osteoarthritis, right knee; Z20.822 Contact with and (suspected) exposure to COVID-19
CPT/HCPCS: 80048; 85025; 85610; 87081; U0003; U0005

== ENCOUNTER 2021-02-09 05:33 | Inpatient (IN) | payer MEDICARE, BC ==
[2021-02-09] MEDS ORDERED: Scopolamine 1.5 mg/72 hour Patch ONE (06:27)
[2021-02-09] MEDS ORDERED: Metoclopramide HCl 10 MG/2 ML VIAL ONE (06:27)
[2021-02-09] MEDS ORDERED: Midazolam HCl 2 mg/2 ml Vial ONE (06:28)
[2021-02-09] MEDS ORDERED: Fentanyl 100 MCG/2 ML VIAL ONE ×3 (06:28→09:45)
[2021-02-09] MEDS ORDERED: Lidocaine 1% (PF) 30 ML VIAL ONE (06:28)
[2021-02-09] MEDS ORDERED: Tranexamic Acid 1,000 MG/10 ML VIAL ONE ×2 (06:34→09:15)
[2021-02-09] MEDS ORDERED: Sodium Chloride 0.9% 100 ML ONE (06:34)
[2021-02-09] MEDS ORDERED: PROPOFOL 200 MG/20 ML VIAL ONE (06:41)
[2021-02-09] MEDS ORDERED: Ketorolac Tromethamine 30 MG/ML VIAL ONE (06:41)
[2021-02-09] MEDS ORDERED: ePHEDrine 50 MG/ML VIAL ONE (06:41)
[2021-02-09] MEDS ORDERED: Labetalol HCl 100 MG/20 ML VIAL ONE (06:41)
[2021-02-09] MEDS ORDERED: Bupivacaine HCl 0.5%/Epinephrine 1:200,000/PF 30 ml Vial ONE (06:41)
[2021-02-09] MEDS ORDERED: Glycopyrrolate 0.2 MG/ML 5 ML SYRINGE ONE (06:41)
[2021-02-09] MEDS ORDERED: Lidocaine 1% PF 5 ML VIAL ONE (06:41)
[2021-02-09] MEDS ORDERED: Ondansetron PF 4 MG/2 ML Vial ONE (06:41)
[2021-02-09] MEDS ORDERED: Dexamethasone 20 MG/5 ML VIAL ONE (06:41)
[2021-02-09] MEDS ORDERED: Gentamicin Sulfate 80 MG in Premix Bag 1 BAG IVPB SCH (06:45)
[2021-02-09] MEDS ORDERED: Tranexamic Acid 1,000 MG in Sodium Chloride 0.9% 100 ML IVPB SCH (06:45)
[2021-02-09] MEDS ORDERED: Promethazine HCl 25 MG/ML VIAL ONE (07:01)
[2021-02-09] MEDS ORDERED: Vancomycin HCl 1.5 GM in Sodium Chloride 0.9% 250 ML 300 ML IVPB SCH ×2 (07:15→20:00)
[2021-02-09] MEDS ORDERED: Fentanyl 100 MCG/2 ML VIAL SLOW IVP PRN (07:20)
[2021-02-09] MEDS ORDERED: Zolpidem Tartrate 5 MG TAB PO PRN ×2 (07:30→09:14)
[2021-02-09] MEDS ORDERED: HYDROcodone/Acetaminophen 10/325 mg Tablet PO PRN (07:30)
[2021-02-09] MEDS ORDERED: Ropivacaine 0.2% 550 ML 550 ML NERVE BLCK SCH (07:30)
[2021-02-09] MEDS ORDERED: traMADol HCl 50 MG TAB PO PRN ×2 (07:30)
[2021-02-09] MEDS ORDERED: Ondansetron PF 4 MG/2 ML Vial IVP PRN ×2 (07:30→09:14)
[2021-02-09] MEDS ORDERED: Promethazine HCl 25 MG/ML VIAL IM PRN ×3 (07:30→09:22)
[2021-02-09] MEDS ORDERED: Morphine 10 MG/ML VIAL ONE (07:36)
[2021-02-09] MEDS ORDERED: HYDROmorphone 2 MG/ML VIAL ONE (08:02)
[2021-02-09] MEDS ORDERED: Bupivacaine PF 0.5% 30 ML VIAL ONE (08:48)
[2021-02-09] MEDS ORDERED: Acetaminophen 325 MG TAB PO PRN (09:14)
[2021-02-09] MEDS ORDERED: diphenhydrAMINE 25 MG CAP PO PRN (09:14)
[2021-02-09] MEDS ORDERED: Lorazepam 0.5 MG TAB PO PRN (09:16)
[2021-02-09] MEDS ORDERED: HYDROmorphone 2 MG/ML VIAL SLOW IVP PRN (09:22)
[2021-02-09] MEDS ORDERED: PACU-Morphine 4MG/ML VIAL SLOW IVP PRN (09:22)
[2021-02-09] MEDS ORDERED: Promethazine HCl 25 MG/ML VIAL IVPB PRN (09:22)
[2021-02-09] MEDS ORDERED: Ondansetron HCl/PF 4 MG/2 ML Vial IVP PRN (09:22)
[2021-02-09] MEDS ORDERED: Ketorolac Tromethamine 30 MG/ML VIAL IVP SCH (12:00)
[2021-02-09] MEDS: Sodium Chloride 0.9% 1,000 ML IV SCH ×2 (13:50→21:46)
[2021-02-09] MEDS: Ketorolac Tromethamine 30 MG/ML VIAL IVP SCH ×2 (15:08→20:29)
[2021-02-09] MEDS: HYDROcodone/Acetaminophen 10/325 mg Tablet PO PRN ×2 (15:09→20:28)
[2021-02-09] MEDS: Metoprolol Tartrate 100 MG TAB PO SCH (20:30)
[2021-02-09] MEDS: Aspirin 81 mg Enteric Coated Tablet PO SCH (20:30)
[2021-02-09] MEDS ORDERED: Aspirin 81 mg Enteric Coated Tablet PO SCH (21:00)
[2021-02-10] MEDS: HYDROcodone/Acetaminophen 10/325 mg Tablet PO PRN ×3 (02:03→12:45)
[2021-02-10] MEDS: Ketorolac Tromethamine 30 MG/ML VIAL IVP SCH ×2 (02:04→08:34)
[2021-02-10] MEDS: Sodium Chloride 0.9% 1,000 ML IV SCH (04:08)
[2021-02-10] MEDS ORDERED: Levothyroxine Sodium 125 MCG TAB PO SCH (06:00)
[2021-02-10 06:14] LABS: Hemoglobin 10.8 g/dL (12.0-16.0); Mean Corpuscular HGB CONC 34.6 g/dL (32.0-36.0); Mean Corpuscular Hemoglobin 34.5 pg (27.0-31.0); Mean Corpuscular Volume 99.8 fL (78.0-98.0); Mean Platelet Volume 8.7 fL (7.4-10.4); Platelet Count 151 thou/uL (130-400); RBC Distribution Width 11.4 % (11.5-14.5); Red Blood Cell (RBC) Count 3.14 mill/uL (4.20-5.40); White Blood Cell (WBC) Count 10.6 thou/uL (4.8-10.8)
[2021-02-10] MEDS ORDERED: Ferrous Gluconate 324 MG TAB PO SCH (08:00)
[2021-02-10] MEDS ORDERED: Multivitamin W/ Minerals 1 TAB PO SCH (09:00)
[2021-02-10] MEDS ORDERED: Senokot S 8.6-50 MG TAB PO SCH (09:00)
[2021-02-10] MEDS: Aspirin 81 mg Enteric Coated Tablet PO SCH (09:09)
[2021-02-10] MEDS: Metoprolol Tartrate 100 MG TAB PO SCH (09:10)
[2021-02-10 11:20] VITALS: BMI 32.5
[2021-02-10 11:43] VITALS: BP 123/60; TEMP 97.8
== END 2021-02-10 12:30 | disposition home or self-care (01) | DRG 470 ==
LOC: SDC 05:33 → SURG A 09:15
PROVIDERS: ADMIT Orthopaedic Surgery; ATTEND Orthopaedic Surgery
PROC: 0SRC0J9 Replacement of Right Knee Joint with Synthetic Substitute, Cemented, Open Approach (ICD-10-PCS; principal; 2021-02-09)
DX: M17.11 Unilateral primary osteoarthritis, right knee (principal)
CPT/HCPCS: 36415; 85027; A4306; C1713; J1100; J1170; J1580; J1885; J2001; J2250; J2270; J2405; J2550; J2704; J2765; J2795; J3010; J3370; J3490; J7050; S0020

== ENCOUNTER 2021-03-10 14:05 | Inpatient (IN) | payer OTHER, MEDICARE, BC ==
[~2021-03-10 14:05] MED LIST: Iopamidol 370 76% 100 ML VIAL ONE
[2021-03-10] MEDS ORDERED: ceFAZolin 2 GM/DEX 5% 100 ML BAG ONE (14:16)
[2021-03-10] MEDS ORDERED: Fentanyl 100 MCG/2 ML VIAL ONE (14:17)
[2021-03-10 15:10] LABS: SARS-CoV-2 NAA Rapid Test Not Detected (NotDetected)
[2021-03-10 16:18] LABS: INR-International Normal Ratio 1.3; PTT 24.2 sec (22.9-36.1); Prothrombin Time 16.4 sec (12.0-14.7)
[2021-03-10] MEDS ORDERED: PROPOFOL 20 ML ONE (16:22)
[2021-03-10] MEDS ORDERED: Boostrix 0.5 ML (Tdap) VIAL ONE (16:24)
[2021-03-10] MEDS ORDERED: hydrALAZINE 20 MG/ML VIAL SLOW IVP PRN (16:45)
[2021-03-10] MEDS ORDERED: Morphine 4 MG/ML VIAL SLOW IVP PRN (16:45)
[2021-03-10] MEDS ORDERED: Dextrose 50% Abboject 50 ML SYRINGE SLOW IVP PRN (16:45)
[2021-03-10] MEDS ORDERED: Dextrose 5% in Water 1,000 ML IV PRN (16:45)
[2021-03-10] MEDS ORDERED: traMADol HCl 50 MG TAB PO PRN (16:56)
[2021-03-10 17:07] LABS: #Monocytes 1.6 thou/uL (0.11-0.59); #Neutrophils 15.2 thou/uL (1.40-6.50); %Basophils 0.1 % (0.0-1.0); %Eosinophils 0.2 % (0.0-10.0); %Lymphocytes 5.6 % (21.0-51.0); %Monocytes 8.8 % (0.0-10.0); %Neutrophils 85.2 % (42.0-75.0); Hemoglobin 12.2 g/dL (12.0-16.0); Mean Corpuscular HGB CONC 33.4 g/dL (32.0-36.0); Mean Corpuscular Hemoglobin 34.3 pg (27.0-31.0); Mean Platelet Volume 8.3 fL (7.4-10.4); Platelet Count 187 thou/uL (130-400); RBC Distribution Width 12.9 % (11.5-14.5); Red Blood Cell (RBC) Count 3.57 mill/uL (4.20-5.40); White Blood Cell (WBC) Count 17.8 thou/uL (4.8-10.8)
[2021-03-10] MEDS ORDERED: Clindamycin/D5W 900 MG in Premix Bag 1 BAG IVPB SCH (17:15)
[2021-03-10 17:35] LABS: ALT (SGPT) 53 U/L (8-55); AST (SGOT) 62 U/L (5-34); Albumin 3.5 g/dL (3.4-4.8); Alcohol Less than 10 mg/dL (Less than 10); Alkaline Phosphatase 88 U/L (40-110); Anion Gap 18 mmol/L (10-20); BUN (Urea Nitrogen) 14 mg/dL (9.8-20.1); Bilirubin, Total 0.6 mg/dL (0.2-1.2); Calc. Creatinine Clearance 0 mL/min (70-130); Calcium 8.6 mg/dL (7.8-10.44); Carbon Dioxide 16 mmol/L (23-31); Chloride 109 mmol/L (98-107); Globulin 2.7 g/dL (2.4-3.5); Glucose 150 mg/dL (80-115); Potassium 3.9 mmol/L (3.5-5.1); Protein, Total 6.2 g/dL (5.8-8.1); Sodium 139 mmol/L (136-145)
[2021-03-10 17:36] LABS: Lactic Acid 5.8 mmol/L (0.5-2.2)
[2021-03-10] MEDS ORDERED: Sodium Chloride 0.9% 1,000 ML IV SCH (18:00)
[2021-03-10 19:37] VITALS: BMI 32.5
[2021-03-10] MEDS: Acetaminophen 500 MG TAB PO SCH ×2 (19:46→23:17)
[2021-03-10] MEDS: traMADol HCl 50 MG TAB PO SCH ×2 (19:47→23:18)
[2021-03-10] MEDS: Scopolamine 1.5 mg/72 hour Patch TD SCH (20:53)
[2021-03-10] MEDS: Sodium Chloride 0.9% 1,000 ML IV SCH (20:53)
[2021-03-10] MEDS: Senokot S 8.6-50 MG TAB PO SCH (20:54)
[2021-03-10] MEDS: Gabapentin 100 MG CAP PO SCH (20:54)
[2021-03-10] MEDS ORDERED: Metoprolol Tartrate 100 MG TAB PO SCH (21:00)
[2021-03-10] MEDS ORDERED: Famotidine/PF 20 mg/2ml Vial SLOW IVP SCH (21:00)
[2021-03-10] MEDS: Ondansetron PF 4 MG/2 ML Vial IVP PRN (21:17)
[2021-03-11] MEDS: Sodium Chloride 0.9% 1,000 ML IV SCH ×3 (03:52→16:26)
[2021-03-11] MEDS: Acetaminophen 500 MG TAB PO SCH ×4 (04:18→22:29)
[2021-03-11] MEDS: traMADol HCl 50 MG TAB PO SCH ×4 (04:19→22:30)
[2021-03-11 07:15] LABS: Lactic Acid 1.9 mmol/L (0.5-2.2)
[2021-03-11 07:18] LABS: #Lymphocytes 1.2 thou/uL (1.20-3.40); #Monocytes 1.1 thou/uL (0.11-0.59); #Neutrophils 5.8 thou/uL (1.40-6.50); %Basophils 0.3 % (0.0-1.0); %Eosinophils 0.2 % (0.0-10.0); %Lymphocytes 14.7 % (21.0-51.0); %Monocytes 13.1 % (0.0-10.0); %Neutrophils 71.7 % (42.0-75.0); Hemoglobin 9.1 g/dL (12.0-16.0); Mean Corpuscular HGB CONC 33.6 g/dL (32.0-36.0); Mean Corpuscular Hemoglobin 34.5 pg (27.0-31.0); Mean Platelet Volume 8.8 fL (7.4-10.4); Platelet Count 158 thou/uL (130-400); RBC Distribution Width 12.8 % (11.5-14.5); Red Blood Cell (RBC) Count 2.63 mill/uL (4.20-5.40)
[2021-03-11 07:21] LABS: Anion Gap 13 mmol/L (10-20); BUN (Urea Nitrogen) 15 mg/dL (9.8-20.1); Calc. Creatinine Clearance 70 mL/min (70-130); Carbon Dioxide 20 mmol/L (23-31); Chloride 109 mmol/L (98-107); Glucose 121 mg/dL (80-115); Magnesium 1.9 mg/dL (1.6-2.6); Phosphorus 4.2 mg/dL (2.3-4.7); Potassium 3.9 mmol/L (3.5-5.1); Sodium 138 mmol/L (136-145)
[2021-03-11] MEDS ORDERED: Lorazepam 1 MG TAB PO PRN (07:46)
[2021-03-11] MEDS: Polyethylene Glycol 3350 17 GM Packet PO SCH (09:10)
[2021-03-11] MEDS: Cyclobenzaprine 10 MG TAB PO PRN ×2 (09:11→20:01)
[2021-03-11] MEDS: Senokot S 8.6-50 MG TAB PO SCH ×2 (09:12→20:00)
[2021-03-11] MEDS: Metoprolol Tartrate 100 MG TAB PO SCH ×2 (09:12→20:01)
[2021-03-11] MEDS: Gabapentin 100 MG CAP PO SCH ×3 (09:12→20:01)
[2021-03-11 14:13] LABS: Bilirubin Negative (Negative); Blood, Urine Negative (Negative); Clarity Clear (Clear); Glucose, Urine (Dipstick) Normal (Negative); Ketone, Urine Negative (Negative); Leukocyte Negative Leu/uL (Negative); Nitrite Negative (Negative); Protein, Urine (Dipstick) 20 mg/dL (Neg-Trace); RBC/HPF 0-3 HPF (0-3); Specific Gravity, Urine 1.047 (1.002-1.036); Squamous Epithelial 0-3 HPF (0-3); Urobilinogen Normal mg/dL (Less than 2); pH, Urine 5.5 (5.0-9.0)
[2021-03-11 14:22] LABS: Bacteria/HPF 1+ HPF (None Seen)
[2021-03-11 14:23] LABS: Urine Culture Reflex Yes Yes
[2021-03-11] MEDS: Ondansetron PF 4 MG/2 ML Vial IVP PRN (20:00)
[2021-03-11] MEDS: Ciprofloxacin 500 MG TAB PO SCH (20:01)
[2021-03-12] MEDS ORDERED: Sodium Chloride 0.65% Nasal 44 ML BOT EA NARE PRN (01:31)
[2021-03-12] MEDS: Ciprofloxacin 500 MG TAB PO SCH ×2 (05:05→20:30)
[2021-03-12] MEDS: Acetaminophen 500 MG TAB PO SCH ×4 (05:05→22:43)
[2021-03-12] MEDS: traMADol HCl 50 MG TAB PO SCH (05:06)
[2021-03-12] MEDS: SODIUM CHLORIDE IVPB SCH ×3 (06:05→22:30)
[2021-03-12] MEDS: GENTAMICIN IVPB SCH ×3 (06:05→22:30)
[2021-03-12] MEDS: ADMIXTURE FEE IVPB SCH ×3 (06:05→22:30)
[2021-03-12 06:37] LABS: Anion Gap 8 mmol/L (10-20); BUN (Urea Nitrogen) 12 mg/dL (9.8-20.1); Calc. Creatinine Clearance 95 mL/min (70-130); Calcium 7.6 mg/dL (7.8-10.44); Carbon Dioxide 22 mmol/L (23-31); Chloride 109 mmol/L (98-107); Glucose 95 mg/dL (80-115); Magnesium 1.8 mg/dL (1.6-2.6); Phosphorus 1.9 mg/dL (2.3-4.7); Potassium 3.7 mmol/L (3.5-5.1); Sodium 135 mmol/L (136-145)
[2021-03-12 06:42] LABS: #Eosinphils 0.1 thou/uL (0.0-0.7); #Monocytes 0.9 thou/uL (0.11-0.59); #Neutrophils 4.2 thou/uL (1.40-6.50); %Basophils 0.7 % (0.0-1.0); %Eosinophils 1.3 % (0.0-10.0); %Lymphocytes 15.6 % (21.0-51.0); %Monocytes 14.3 % (0.0-10.0); %Neutrophils 68.1 % (42.0-75.0); Hemoglobin 7.3 g/dL (12.0-16.0); Mean Corpuscular HGB CONC 33.2 g/dL (32.0-36.0); Mean Corpuscular Hemoglobin 35.8 pg (27.0-31.0); Mean Platelet Volume 8.2 fL (7.4-10.4); Platelet Count 110 thou/uL (130-400); RBC Distribution Width 12.6 % (11.5-14.5); Red Blood Cell (RBC) Count 2.03 mill/uL (4.20-5.40); White Blood Cell (WBC) Count 6.1 thou/uL (4.8-10.8)
[2021-03-12] MEDS ORDERED: Midazolam HCl 2 mg/2 ml Vial ONE (06:50)
[2021-03-12] MEDS ORDERED: Fentanyl 100 MCG/2 ML VIAL ONE ×2 (06:50→07:33)
[2021-03-12] MEDS ORDERED: Magnesium 2 GM/50 ML 2 GM in Premix Bag 1 BAG IVPB SCH (07:15)
[2021-03-12] MEDS ORDERED: Potassium Phosphate 30 MMOL in Sodium Chloride 0.9% 250 ML 250 ML IVPB SCH (07:15)
[2021-03-12] MEDS: Levothyroxine Sodium 125 MCG TAB PO SCH (07:16)
[2021-03-12] MEDS ORDERED: Ondansetron PF 4 MG/2 ML Vial ONE (07:51)
[2021-03-12] MEDS ORDERED: Bupivacaine HCl 0.5%/Epinephrine 1:200,000/PF 30 ml Vial ONE (07:51)
[2021-03-12] MEDS ORDERED: PROPOFOL 200 MG/20 ML VIAL ONE (07:51)
[2021-03-12] MEDS ORDERED: Ketorolac Tromethamine 30 MG/ML VIAL ONE (07:51)
[2021-03-12] MEDS ORDERED: Lidocaine 1% PF 5 ML VIAL ONE (07:51)
[2021-03-12] MEDS ORDERED: Rocuronium Bromide 10 MG/ML (10ML VIAL) ONE (07:51)
[2021-03-12] MEDS ORDERED: Dexamethasone 20 MG/5 ML VIAL ONE (07:51)
[2021-03-12] MEDS ORDERED: Fentanyl 100 MCG/2 ML VIAL SLOW IVP PRN ×2 (08:39→10:45)
[2021-03-12] MEDS ORDERED: traMADol HCl 50 MG TAB PO PRN (08:45)
[2021-03-12] MEDS ORDERED: Zolpidem Tartrate 5 MG TAB PO PRN (08:45)
[2021-03-12] MEDS ORDERED: Ropivacaine HCl/PF 250 ML in Premix Bag 1 BAG NERVE BLCK SCH (08:45)
[2021-03-12] MEDS ORDERED: Promethazine HCl 25 MG/ML VIAL IM PRN ×2 (08:45→10:40)
[2021-03-12] MEDS ORDERED: Promethazine HCl 25 MG/ML VIAL ONE (09:44)
[2021-03-12] MEDS ORDERED: Dexmedetomidine 200 MCG/2 ML VIAL ONE (09:44)
[2021-03-12] MEDS ORDERED: HYDROmorphone 2 MG/ML VIAL SLOW IVP PRN (10:40)
[2021-03-12] MEDS ORDERED: Ondansetron HCl/PF 4 MG/2 ML Vial IVP PRN (10:40)
[2021-03-12] MEDS ORDERED: PACU-Morphine 4MG/ML VIAL SLOW IVP PRN (10:40)
[2021-03-12] MEDS ORDERED: Promethazine HCl 25 MG/ML VIAL IVPB PRN (10:40)
[2021-03-12] MEDS ORDERED: HYDROcodone/Acetaminophen 10/325 mg Tablet PO PRN ×2 (10:45)
[2021-03-12] MEDS: Vancomycin 1.5 GRAM/300 ML BAG 1.5 GM in Premix Bag 1 BAG IVPB SCH ×2 (11:29→17:21)
[2021-03-12] MEDS: Ascorbic Acid 500 mg Chewable Tablet PO SCH ×2 (11:31→20:30)
[2021-03-12] MEDS: Polyethylene Glycol 3350 17 GM Packet PO SCH (11:31)
[2021-03-12] MEDS: Senokot S 8.6-50 MG TAB PO SCH ×2 (11:31→20:30)
[2021-03-12] MEDS: Metoprolol Tartrate 100 MG TAB PO SCH ×2 (11:31→20:30)
[2021-03-12] MEDS: Gabapentin 100 MG CAP PO SCH ×3 (11:31→20:30)
[2021-03-12] MEDS: traMADol HCl 50 MG TAB PO PRN ×2 (13:58→22:44)
[2021-03-12] MEDS: Ferrous Sulfate 325 MG TAB PO SCH (17:20)
[2021-03-12] MEDS: Cyclobenzaprine 10 MG TAB PO PRN (20:38)
[2021-03-12] MEDS ORDERED: diphenhydrAMINE 25 MG CAP PO PRN (22:38)
[2021-03-13] MEDS: Levothyroxine Sodium 125 MCG TAB PO SCH (05:06)
[2021-03-13] MEDS: Acetaminophen 500 MG TAB PO SCH ×4 (05:06→23:51)
[2021-03-13] MEDS: Ciprofloxacin 500 MG TAB PO SCH (05:06)
[2021-03-13] MEDS: Vancomycin 1.5 GRAM/300 ML BAG 1.5 GM in Premix Bag 1 BAG IVPB SCH ×2 (05:07→17:48)
[2021-03-13 05:47] LABS: #Lymphocytes 0.8 thou/uL (1.20-3.40); #Monocytes 1.3 thou/uL (0.11-0.59); #Neutrophils 6.4 thou/uL (1.40-6.50); %Basophils 0.5 % (0.0-1.0); %Eosinophils 0.1 % (0.0-10.0); %Lymphocytes 9.5 % (21.0-51.0); %Monocytes 14.8 % (0.0-10.0); %Neutrophils 75.2 % (42.0-75.0); Hemoglobin 7.3 g/dL (12.0-16.0); Mean Corpuscular HGB CONC 33.4 g/dL (32.0-36.0); Mean Corpuscular Hemoglobin 33.7 pg (27.0-31.0); Mean Platelet Volume 8.5 fL (7.4-10.4); Platelet Count 123 thou/uL (130-400); RBC Distribution Width 14.8 % (11.5-14.5); Red Blood Cell (RBC) Count 2.17 mill/uL (4.20-5.40); White Blood Cell (WBC) Count 8.6 thou/uL (4.8-10.8)
[2021-03-13 06:04] LABS: Anion Gap 10 mmol/L (10-20); BUN (Urea Nitrogen) 15 mg/dL (9.8-20.1); Calc. Creatinine Clearance 93 mL/min (70-130); Calcium 7.6 mg/dL (7.8-10.44); Carbon Dioxide 20 mmol/L (23-31); Chloride 108 mmol/L (98-107); Glucose 128 mg/dL (80-115); Magnesium 2.1 mg/dL (1.6-2.6); Potassium 4.6 mmol/L (3.5-5.1); Sodium 133 mmol/L (136-145)
[2021-03-13] MEDS: traMADol HCl 50 MG TAB PO PRN (07:17)
[2021-03-13] MEDS ORDERED: Sodium Phosphate 15 MMOL in Sodium Chloride 0.9% 250 ML 250 ML IVPB SCH (07:45)
[2021-03-13] MEDS: Polyethylene Glycol 3350 17 GM Packet PO SCH (08:57)
[2021-03-13] MEDS: Metoprolol Tartrate 100 MG TAB PO SCH ×2 (08:57→20:16)
[2021-03-13] MEDS: Senokot S 8.6-50 MG TAB PO SCH ×2 (08:57→20:16)
[2021-03-13] MEDS: Enoxaparin Sodium 30 MG/0.3 ML SYRINGE SC SCH ×2 (08:57→20:15)
[2021-03-13] MEDS: Ibuprofen 200 MG TAB PO SCH ×3 (08:57→23:51)
[2021-03-13] MEDS: Ferrous Sulfate 325 MG TAB PO SCH ×2 (08:58→17:48)
[2021-03-13] MEDS: Ascorbic Acid 500 mg Chewable Tablet PO SCH ×2 (08:58→20:16)
[2021-03-13] MEDS: Gabapentin 100 MG CAP PO SCH ×3 (08:58→20:16)
[2021-03-13] MEDS: Saccharomyces boulardii 250 MG CAP PO SCH (08:58)
[2021-03-13] MEDS: Cyclobenzaprine 10 MG TAB PO PRN (10:29)
[2021-03-13] MEDS ORDERED: Calcium Carbonate 500 MG ChewTAB PO PRN (12:11)
[2021-03-13] MEDS: Scopolamine 1.5 mg/72 hour Patch TD SCH (20:15)
[2021-03-14] MEDS: Levothyroxine Sodium 125 MCG TAB PO SCH (05:40)
[2021-03-14] MEDS: Acetaminophen 500 MG TAB PO SCH ×3 (05:40→17:59)
[2021-03-14] MEDS: traMADol HCl 50 MG TAB PO PRN ×2 (05:45→15:31)
[2021-03-14 06:19] LABS: #Basophils 0.1 thou/uL (0.0-0.2); #Eosinphils 0.2 thou/uL (0.0-0.7); #Lymphocytes 1.3 thou/uL (1.20-3.40); #Monocytes 0.9 thou/uL (0.11-0.59); #Neutrophils 4.2 thou/uL (1.40-6.50); %Basophils 0.8 % (0.0-1.0); %Eosinophils 2.8 % (0.0-10.0); %Lymphocytes 20.1 % (21.0-51.0); %Monocytes 13.2 % (0.0-10.0); Hemoglobin 6.1 g/dL (12.0-16.0); Mean Corpuscular HGB CONC 32.9 g/dL (32.0-36.0); Mean Corpuscular Hemoglobin 34.2 pg (27.0-31.0); Mean Platelet Volume 8.2 fL (7.4-10.4); Platelet Count 140 thou/uL (130-400); RBC Distribution Width 14.9 % (11.5-14.5); Red Blood Cell (RBC) Count 1.77 mill/uL (4.20-5.40); White Blood Cell (WBC) Count 6.6 thou/uL (4.8-10.8)
[2021-03-14 06:52] LABS: Anion Gap 10 mmol/L (10-20); BUN (Urea Nitrogen) 14 mg/dL (9.8-20.1); Calc. Creatinine Clearance 87 mL/min (70-130); Calcium 7.6 mg/dL (7.8-10.44); Carbon Dioxide 21 mmol/L (23-31); Chloride 110 mmol/L (98-107); Glucose 96 mg/dL (80-115); Phosphorus 1.6 mg/dL (2.3-4.7); Potassium 3.9 mmol/L (3.5-5.1); Sodium 137 mmol/L (136-145)
[2021-03-14] MEDS: Ferrous Sulfate 325 MG TAB PO SCH ×2 (08:55→17:59)
[2021-03-14] MEDS: Ascorbic Acid 500 mg Chewable Tablet PO SCH ×2 (08:55→20:56)
[2021-03-14] MEDS: Metoprolol Tartrate 100 MG TAB PO SCH ×2 (08:55→20:56)
[2021-03-14] MEDS: Gabapentin 100 MG CAP PO SCH ×3 (08:55→20:56)
[2021-03-14] MEDS: Saccharomyces boulardii 250 MG CAP PO SCH (08:55)
[2021-03-14] MEDS: Ibuprofen 200 MG TAB PO SCH ×2 (08:55→15:31)
[2021-03-14] MEDS: Senokot S 8.6-50 MG TAB PO SCH ×2 (08:56→20:57)
[2021-03-14] MEDS: Polyethylene Glycol 3350 17 GM Packet PO SCH (08:56)
[2021-03-14] MEDS: Enoxaparin Sodium 30 MG/0.3 ML SYRINGE SC SCH ×2 (08:57→20:57)
[2021-03-14] MEDS ORDERED: Sodium Phosphate 30 MMOL in Sodium Chloride 0.9% 250 ML 250 ML IVPB SCH (09:00)
[2021-03-14] MEDS: Cyclobenzaprine 10 MG TAB PO PRN (17:59)
[2021-03-15] MEDS: Ibuprofen 200 MG TAB PO SCH ×5 (00:13→20:12)
[2021-03-15] MEDS: Acetaminophen 500 MG TAB PO SCH ×5 (00:14→22:36)
[2021-03-15] MEDS: traMADol HCl 50 MG TAB PO PRN ×2 (03:34→12:56)
[2021-03-15] MEDS: Ondansetron PF 4 MG/2 ML Vial IVP PRN ×2 (03:38→09:12)
[2021-03-15 04:56] LABS: Anion Gap 10 mmol/L (10-20); BUN (Urea Nitrogen) 13 mg/dL (9.8-20.1); Calc. Creatinine Clearance 96 mL/min (70-130); Calcium 7.7 mg/dL (7.8-10.44); Carbon Dioxide 23 mmol/L (23-31); Chloride 110 mmol/L (98-107); Glucose 90 mg/dL (80-115); Magnesium 1.9 mg/dL (1.6-2.6); Phosphorus 2.7 mg/dL (2.3-4.7); Sodium 139 mmol/L (136-145)
[2021-03-15] MEDS: Levothyroxine Sodium 125 MCG TAB PO SCH (04:56)
[2021-03-15 05:33] LABS: Band 4 % (5-11); Eosinophils 10 % (0-10); Hemoglobin 9.5 g/dL (12.0-16.0); Lymphocytes 21 % (21-51); MDiff Complete? YES; Mean Corpuscular HGB CONC 27.9 g/dL (32.0-36.0); Mean Corpuscular Hemoglobin 27.7 pg (27.0-31.0); Mean Corpuscular Volume 99.4 fL (78.0-98.0); Monocytes 12 % (0-10); Neutrophil 53 % (42-75); Platelet Count 122 thou/uL (130-400); Polychromasia SLIGHT = 2-3 cells (100X) (0-2/hpf); RBC Distribution Width 15.6 % (11.5-14.5); Red Blood Cell (RBC) Count 3.43 mill/uL (4.20-5.40); White Blood Cell (WBC) Count 5.1 thou/uL (4.8-10.8)
[2021-03-15] MEDS ORDERED: PHOS-NAK 1 PKT PACK PO SCH (07:30)
[2021-03-15] MEDS: Metoprolol Tartrate 100 MG TAB PO SCH ×2 (08:09→20:13)
[2021-03-15] MEDS: Ascorbic Acid 500 mg Chewable Tablet PO SCH ×2 (08:09→20:13)
[2021-03-15] MEDS: Senokot S 8.6-50 MG TAB PO SCH ×2 (08:10→20:13)
[2021-03-15] MEDS: Ferrous Sulfate 325 MG TAB PO SCH ×3 (08:10→20:12)
[2021-03-15] MEDS: Saccharomyces boulardii 250 MG CAP PO SCH (08:10)
[2021-03-15] MEDS: Gabapentin 100 MG CAP PO SCH ×3 (08:11→20:13)
[2021-03-15] MEDS: Enoxaparin Sodium 30 MG/0.3 ML SYRINGE SC SCH ×2 (08:12→20:13)
[2021-03-15] MEDS: Polyethylene Glycol 3350 17 GM Packet PO SCH (08:13)
[2021-03-15] MEDS ORDERED: Gabapentin 100 MG CAP PO SCH ×2 (10:00→10:30)
[2021-03-15] MEDS: traMADol HCl 50 MG TAB PO SCH ×3 (10:19→22:36)
[2021-03-15] MEDS: Ropivacaine HCl/PF 250 ML in Premix Bag 1 BAG NERVE BLCK SCH (12:01)
[2021-03-16] MEDS: traMADol HCl 50 MG TAB PO SCH ×5 (03:25→23:57)
[2021-03-16] MEDS: Cyclobenzaprine 10 MG TAB PO PRN (03:29)
[2021-03-16 05:35] LABS: #Eosinphils 0.3 thou/uL (0.0-0.7); #Lymphocytes 1.4 thou/uL (1.20-3.40); #Monocytes 1.1 thou/uL (0.11-0.59); #Neutrophils 6.8 thou/uL (1.40-6.50); %Basophils 0.2 % (0.0-1.0); %Eosinophils 3.6 % (0.0-10.0); %Lymphocytes 14.1 % (21.0-51.0); %Monocytes 11.6 % (0.0-10.0); %Neutrophils 70.5 % (42.0-75.0); Hemoglobin 8.4 g/dL (12.0-16.0); Mean Corpuscular HGB CONC 32.2 g/dL (32.0-36.0); Mean Corpuscular Hemoglobin 32.8 pg (27.0-31.0); Platelet Count 199 thou/uL (130-400); RBC Distribution Width 15.1 % (11.5-14.5); Red Blood Cell (RBC) Count 2.55 mill/uL (4.20-5.40); White Blood Cell (WBC) Count 9.7 thou/uL (4.8-10.8)
[2021-03-16] MEDS: Acetaminophen 500 MG TAB PO SCH ×4 (05:36→23:58)
[2021-03-16] MEDS: traMADol HCl 50 MG TAB PO PRN (05:36)
[2021-03-16] MEDS: Levothyroxine Sodium 125 MCG TAB PO SCH (05:36)
[2021-03-16] MEDS: Ondansetron PF 4 MG/2 ML Vial IVP PRN (05:42)
[2021-03-16 05:51] LABS: Anion Gap 11 mmol/L (10-20); BUN (Urea Nitrogen) 11 mg/dL (9.8-20.1); Calc. Creatinine Clearance 98 mL/min (70-130); Calcium 8.2 mg/dL (7.8-10.44); Carbon Dioxide 23 mmol/L (23-31); Chloride 105 mmol/L (98-107); Glucose 97 mg/dL (80-115); Magnesium 1.8 mg/dL (1.6-2.6); Phosphorus 2.2 mg/dL (2.3-4.7); Sodium 135 mmol/L (136-145)
[2021-03-16] MEDS ORDERED: Magnesium Sulfate 3 GM in Sodium Chloride 0.9% 100 ML IV SCH (09:00)
[2021-03-16] MEDS ORDERED: Potassium Phosphate 30 MMOL, Magnesium Sulfate 3 GM in Sodium Chloride 0.9% 250 ML 250 ML IVPB SCH (09:00)
[2021-03-16] MEDS: Saccharomyces boulardii 250 MG CAP PO SCH (09:17)
[2021-03-16] MEDS: Enoxaparin Sodium 30 MG/0.3 ML SYRINGE SC SCH ×2 (09:17→20:12)
[2021-03-16] MEDS: Ascorbic Acid 500 mg Chewable Tablet PO SCH ×2 (09:17→20:12)
[2021-03-16] MEDS: Ibuprofen 200 MG TAB PO SCH ×3 (09:17→20:11)
[2021-03-16] MEDS: Gabapentin 100 MG CAP PO SCH ×3 (09:18→20:12)
[2021-03-16] MEDS: Polyethylene Glycol 3350 17 GM Packet PO SCH (09:19)
[2021-03-16] MEDS: Metoprolol Tartrate 100 MG TAB PO SCH ×2 (09:19→20:12)
[2021-03-16] MEDS: Senokot S 8.6-50 MG TAB PO SCH ×2 (09:19→20:12)
[2021-03-16] MEDS: Ferrous Sulfate 325 MG TAB PO SCH ×2 (09:19→20:11)
[2021-03-16] MEDS ORDERED: Ferrous Sulfate 325 MG TAB PO SCH (17:00)
[2021-03-16] MEDS: Ropivacaine HCl/PF 250 ML in Premix Bag 1 BAG NERVE BLCK SCH (18:23)
[2021-03-16] MEDS: Scopolamine 1.5 mg/72 hour Patch TD SCH (20:13)
[2021-03-17] MEDS: Cyclobenzaprine 10 MG TAB PO PRN (01:35)
[2021-03-17] MEDS: traMADol HCl 50 MG TAB PO SCH ×4 (05:14→23:21)
[2021-03-17] MEDS: Levothyroxine Sodium 125 MCG TAB PO SCH (05:14)
[2021-03-17] MEDS: Acetaminophen 500 MG TAB PO SCH ×4 (05:15→23:22)
[2021-03-17] MEDS: Polyethylene Glycol 3350 17 GM Packet PO SCH (09:02)
[2021-03-17] MEDS: Metoprolol Tartrate 100 MG TAB PO SCH ×2 (09:04→22:34)
[2021-03-17] MEDS: Ferrous Sulfate 325 MG TAB PO SCH ×2 (09:05→22:33)
[2021-03-17] MEDS: Gabapentin 100 MG CAP PO SCH ×3 (09:05→22:36)
[2021-03-17] MEDS: Ibuprofen 200 MG TAB PO SCH ×3 (09:07→22:35)
[2021-03-17] MEDS: Saccharomyces boulardii 250 MG CAP PO SCH (09:07)
[2021-03-17] MEDS: Enoxaparin Sodium 30 MG/0.3 ML SYRINGE SC SCH ×2 (09:08→22:43)
[2021-03-17] MEDS: Senokot S 8.6-50 MG TAB PO SCH ×2 (09:09→22:37)
[2021-03-17] MEDS: Ascorbic Acid 500 mg Chewable Tablet PO SCH ×2 (09:09→22:34)
[2021-03-17] MEDS ORDERED: traMADol HCl 50 MG TAB PO SCH ×2 (12:00→14:00)
[2021-03-17] MEDS ORDERED: Acetaminophen 500 MG TAB PO SCH ×2 (12:00→14:00)
[2021-03-18] MEDS: Ropivacaine HCl/PF 250 ML in Premix Bag 1 BAG NERVE BLCK SCH (03:18)
[2021-03-18 04:27] LABS: #Eosinphils 0.3 thou/uL (0.0-0.7); #Lymphocytes 1.5 thou/uL (1.20-3.40); %Basophils 0.4 % (0.0-1.0); %Eosinophils 4.2 % (0.0-10.0); %Lymphocytes 18.7 % (21.0-51.0); %Monocytes 12.9 % (0.0-10.0); %Neutrophils 63.9 % (42.0-75.0); Hemoglobin 6.3 g/dL (12.0-16.0); Mean Corpuscular HGB CONC 32.8 g/dL (32.0-36.0); Mean Corpuscular Hemoglobin 33.7 pg (27.0-31.0); Mean Platelet Volume 7.2 fL (7.4-10.4); Platelet Count 280 thou/uL (130-400); RBC Distribution Width 14.4 % (11.5-14.5); Red Blood Cell (RBC) Count 1.88 mill/uL (4.20-5.40); White Blood Cell (WBC) Count 7.8 thou/uL (4.8-10.8)
[2021-03-18] MEDS: Acetaminophen 500 MG TAB PO SCH ×4 (05:05→23:24)
[2021-03-18] MEDS: traMADol HCl 50 MG TAB PO SCH ×4 (05:06→23:25)
[2021-03-18] MEDS: Levothyroxine Sodium 125 MCG TAB PO SCH (05:07)
[2021-03-18 08:28] LABS: #Basophils 0.1 thou/uL (0.0-0.2); #Eosinphils 0.4 thou/uL (0.0-0.7); #Lymphocytes 1.4 thou/uL (1.20-3.40); #Monocytes 0.9 thou/uL (0.11-0.59); #Neutrophils 6.2 thou/uL (1.40-6.50); %Basophils 0.6 % (0.0-1.0); %Eosinophils 4.2 % (0.0-10.0); %Lymphocytes 16.1 % (21.0-51.0); %Monocytes 9.8 % (0.0-10.0); %Neutrophils 69.3 % (42.0-75.0); Hemoglobin 7.2 g/dL (12.0-16.0); Mean Corpuscular HGB CONC 30.8 g/dL (32.0-36.0); Mean Corpuscular Hemoglobin 31.8 pg (27.0-31.0); Mean Platelet Volume 7.2 fL (7.4-10.4); Platelet Count 321 thou/uL (130-400); RBC Distribution Width 14.3 % (11.5-14.5); Red Blood Cell (RBC) Count 2.26 mill/uL (4.20-5.40); White Blood Cell (WBC) Count 8.9 thou/uL (4.8-10.8)
[2021-03-18] MEDS: Polyethylene Glycol 3350 17 GM Packet PO SCH (09:11)
[2021-03-18] MEDS: Ferrous Sulfate 325 MG TAB PO SCH ×2 (09:18→21:36)
[2021-03-18] MEDS: Gabapentin 100 MG CAP PO SCH ×3 (09:19→21:37)
[2021-03-18] MEDS: Ascorbic Acid 500 mg Chewable Tablet PO SCH ×2 (09:20→21:35)
[2021-03-18] MEDS: Metoprolol Tartrate 100 MG TAB PO SCH ×2 (09:20→21:38)
[2021-03-18] MEDS: Ibuprofen 200 MG TAB PO SCH ×3 (09:20→21:36)
[2021-03-18] MEDS: Enoxaparin Sodium 30 MG/0.3 ML SYRINGE SC SCH ×2 (09:21→21:44)
[2021-03-18] MEDS: Senokot S 8.6-50 MG TAB PO SCH ×2 (09:21→21:44)
[2021-03-18 16:23] LABS: #Eosinphils 0.3 thou/uL (0.0-0.7); #Lymphocytes 1.5 thou/uL (1.20-3.40); #Monocytes 0.8 thou/uL (0.11-0.59); #Neutrophils 5.5 thou/uL (1.40-6.50); %Basophils 0.3 % (0.0-1.0); %Eosinophils 3.4 % (0.0-10.0); %Lymphocytes 18.8 % (21.0-51.0); %Monocytes 10.3 % (0.0-10.0); %Neutrophils 67.2 % (42.0-75.0); Hemoglobin 7.1 g/dL (12.0-16.0); Mean Corpuscular HGB CONC 31.1 g/dL (32.0-36.0); Mean Corpuscular Hemoglobin 31.1 pg (27.0-31.0); Mean Corpuscular Volume 99.8 fL (78.0-98.0); Mean Platelet Volume 7.1 fL (7.4-10.4); Platelet Count 336 thou/uL (130-400); RBC Distribution Width 14.8 % (11.5-14.5); Red Blood Cell (RBC) Count 2.27 mill/uL (4.20-5.40); White Blood Cell (WBC) Count 8.2 thou/uL (4.8-10.8)
[2021-03-18 17:27] LABS: SARS-CoV-2 PCR by NAA Not Detected (NotDetected)
[2021-03-19] MEDS: traMADol HCl 50 MG TAB PO SCH ×4 (05:47→23:43)
[2021-03-19] MEDS: Acetaminophen 500 MG TAB PO SCH ×4 (05:48→23:43)
[2021-03-19] MEDS: Levothyroxine Sodium 125 MCG TAB PO SCH (05:48)
[2021-03-19 06:29] LABS: #Eosinphils 0.4 thou/uL (0.0-0.7); #Lymphocytes 1.5 thou/uL (1.20-3.40); #Neutrophils 6.8 thou/uL (1.40-6.50); %Basophils 0.5 % (0.0-1.0); %Eosinophils 3.8 % (0.0-10.0); %Lymphocytes 15.7 % (21.0-51.0); %Monocytes 10.6 % (0.0-10.0); %Neutrophils 69.5 % (42.0-75.0); Hemoglobin 9.3 g/dL (12.0-16.0); Mean Corpuscular HGB CONC 32.5 g/dL (32.0-36.0); Mean Corpuscular Hemoglobin 32.2 pg (27.0-31.0); Mean Corpuscular Volume 99.1 fL (78.0-98.0); Mean Platelet Volume 6.9 fL (7.4-10.4); Platelet Count 354 thou/uL (130-400); RBC Distribution Width 15.3 % (11.5-14.5); Red Blood Cell (RBC) Count 2.88 mill/uL (4.20-5.40); White Blood Cell (WBC) Count 9.7 thou/uL (4.8-10.8)
[2021-03-19] MEDS ORDERED: Morphine 4 MG/ML VIAL ONE (08:25)
[2021-03-19] MEDS ORDERED: Morphine 2 MG/ML VIAL SLOW IVP ONE (08:36)
[2021-03-19] MEDS: Enoxaparin Sodium 30 MG/0.3 ML SYRINGE SC SCH ×2 (09:32→20:15)
[2021-03-19] MEDS: Gabapentin 100 MG CAP PO SCH ×3 (09:33→20:15)
[2021-03-19] MEDS: Ibuprofen 200 MG TAB PO SCH ×3 (09:33→20:16)
[2021-03-19] MEDS: Ferrous Sulfate 325 MG TAB PO SCH ×2 (09:33→20:17)
[2021-03-19] MEDS: Metoprolol Tartrate 100 MG TAB PO SCH ×2 (09:34→20:17)
[2021-03-19] MEDS: Senokot S 8.6-50 MG TAB PO SCH ×3 (09:34→20:17)
[2021-03-19] MEDS: Ascorbic Acid 500 mg Chewable Tablet PO SCH ×2 (09:34→20:15)
[2021-03-19] MEDS: Polyethylene Glycol 3350 17 GM Packet PO SCH (09:34)
[2021-03-19] MEDS ORDERED: Morphine 4 MG/ML VIAL SLOW IVP SCH (09:45)
[2021-03-19] MEDS: Scopolamine 1.5 mg/72 hour Patch TD SCH (20:17)
[2021-03-20] MEDS: Acetaminophen 500 MG TAB PO SCH ×3 (05:40→17:38)
[2021-03-20] MEDS: Levothyroxine Sodium 125 MCG TAB PO SCH (05:40)
[2021-03-20] MEDS: traMADol HCl 50 MG TAB PO SCH ×3 (05:40→17:39)
[2021-03-20] MEDS: Gabapentin 100 MG CAP PO SCH ×3 (08:37→20:31)
[2021-03-20] MEDS: Ascorbic Acid 500 mg Chewable Tablet PO SCH ×2 (08:37→20:32)
[2021-03-20] MEDS: Ferrous Sulfate 325 MG TAB PO SCH ×2 (08:37→20:31)
[2021-03-20] MEDS: Metoprolol Tartrate 100 MG TAB PO SCH ×2 (08:38→20:33)
[2021-03-20] MEDS: Enoxaparin Sodium 30 MG/0.3 ML SYRINGE SC SCH ×2 (08:38→20:32)
[2021-03-20] MEDS: Ibuprofen 200 MG TAB PO SCH ×3 (08:38→20:31)
[2021-03-20] MEDS: Polyethylene Glycol 3350 17 GM Packet PO SCH (08:38)
[2021-03-20] MEDS: Senokot S 8.6-50 MG TAB PO SCH (20:33)
[2021-03-21] MEDS: Acetaminophen 500 MG TAB PO SCH ×5 (00:12→23:39)
[2021-03-21] MEDS: traMADol HCl 50 MG TAB PO SCH ×5 (00:12→23:40)
[2021-03-21 05:38] LABS: #Eosinphils 0.4 thou/uL (0.0-0.7); #Lymphocytes 1.5 thou/uL (1.20-3.40); #Monocytes 0.8 thou/uL (0.11-0.59); #Neutrophils 5.2 thou/uL (1.40-6.50); %Basophils 0.3 % (0.0-1.0); %Lymphocytes 19.4 % (21.0-51.0); %Monocytes 9.8 % (0.0-10.0); %Neutrophils 65.5 % (42.0-75.0); Hemoglobin 8.6 g/dL (12.0-16.0); Mean Corpuscular HGB CONC 32.7 g/dL (32.0-36.0); Mean Corpuscular Hemoglobin 32.3 pg (27.0-31.0); Mean Corpuscular Volume 98.8 fL (78.0-98.0); Mean Platelet Volume 6.7 fL (7.4-10.4); Platelet Count 437 thou/uL (130-400); RBC Distribution Width 15.3 % (11.5-14.5); Red Blood Cell (RBC) Count 2.67 mill/uL (4.20-5.40); White Blood Cell (WBC) Count 7.9 thou/uL (4.8-10.8)
[2021-03-21 06:01] LABS: Anion Gap 8 mmol/L (10-20); BUN (Urea Nitrogen) 14 mg/dL (9.8-20.1); Calc. Creatinine Clearance 99 mL/min (70-130); Calcium 8.6 mg/dL (7.8-10.44); Carbon Dioxide 32 mmol/L (23-31); Chloride 100 mmol/L (98-107); Glucose 84 mg/dL (80-115); Magnesium 1.9 mg/dL (1.6-2.6); Phosphorus 3.2 mg/dL (2.3-4.7); Potassium 4.1 mmol/L (3.5-5.1); Sodium 136 mmol/L (136-145)
[2021-03-21] MEDS: Levothyroxine Sodium 125 MCG TAB PO SCH (06:03)
[2021-03-21] MEDS: Ibuprofen 200 MG TAB PO SCH ×3 (08:24→20:53)
[2021-03-21] MEDS: Gabapentin 100 MG CAP PO SCH ×3 (08:25→20:54)
[2021-03-21] MEDS: Ferrous Sulfate 325 MG TAB PO SCH ×2 (08:25→20:53)
[2021-03-21] MEDS: Metoprolol Tartrate 100 MG TAB PO SCH ×2 (08:25→20:53)
[2021-03-21] MEDS: Ascorbic Acid 500 mg Chewable Tablet PO SCH ×2 (08:25→20:53)
[2021-03-21] MEDS: Polyethylene Glycol 3350 17 GM Packet PO SCH (08:26)
[2021-03-21] MEDS: Enoxaparin Sodium 30 MG/0.3 ML SYRINGE SC SCH ×2 (08:26→20:53)
[2021-03-21] MEDS: Senokot S 8.6-50 MG TAB PO SCH ×2 (08:26→20:53)
[2021-03-22] MEDS: Levothyroxine Sodium 125 MCG TAB PO SCH (05:51)
[2021-03-22] MEDS: traMADol HCl 50 MG TAB PO SCH ×2 (05:51→11:18)
[2021-03-22] MEDS: Acetaminophen 500 MG TAB PO SCH ×2 (05:51→11:18)
[2021-03-22] MEDS: Ascorbic Acid 500 mg Chewable Tablet PO SCH (09:18)
[2021-03-22] MEDS: Enoxaparin Sodium 30 MG/0.3 ML SYRINGE SC SCH (09:18)
[2021-03-22] MEDS: Ferrous Sulfate 325 MG TAB PO SCH (09:18)
[2021-03-22] MEDS: Ibuprofen 200 MG TAB PO SCH (09:18)
[2021-03-22] MEDS: Metoprolol Tartrate 100 MG TAB PO SCH (09:18)
[2021-03-22] MEDS: Senokot S 8.6-50 MG TAB PO SCH (09:18)
[2021-03-22] MEDS: Gabapentin 100 MG CAP PO SCH (09:18)
[2021-03-22] MEDS: Polyethylene Glycol 3350 17 GM Packet PO SCH (09:19)
[2021-03-22 12:36] VITALS: BP 128/78; TEMP 98.3
== END 2021-03-22 12:35 | DRG 467 ==
LOC: ERS 14:05 → SURG A 16:52
PROVIDERS: ADMIT Specialist; ATTEND Surgery
PROC: 0PSCXZZ Reposition Right Humeral Head, External Approach (ICD-10-PCS; 2021-03-10)
PROC: 0SRD0J9 Replacement of Left Knee Joint with Synthetic Substitute, Cemented, Open Approach (ICD-10-PCS; principal; 2021-03-12)
PROC: 0SPD0JZ Removal of Synthetic Substitute from Left Knee Joint, Open Approach (ICD-10-PCS; 2021-03-12)
PROC: 3E0T3BZ Introduction of Anesthetic Agent into Peripheral Nerves and Plexi, Percutaneous Approach (ICD-10-PCS; 2021-03-12)
PROC: 30233N1 Transfusion of Nonautologous Red Blood Cells into Peripheral Vein, Percutaneous Approach (ICD-10-PCS; 2021-03-14)
DX: S72.492A Other fracture of lower end of left femur, initial encounter for closed fracture (principal); Z20.822 Contact with and (suspected) exposure to COVID-19; Z23 Encounter for immunization; Z66 Do not resuscitate; S22.41XA Multiple fractures of ribs, right side, initial encounter for closed fracture; S22.059A Unspecified fracture of T5-T6 vertebra, initial encounter for closed fracture; S42.291A Other displaced fracture of upper end of right humerus, initial encounter for closed fracture; N17.9 Acute kidney failure, unspecified; D62 Acute posthemorrhagic anemia; N39.0 Urinary tract infection, site not specified; E87.1 Hypo-osmolality and hyponatremia; M97.12XA Periprosthetic fracture around internal prosthetic left knee joint, initial encounter; E03.9 Hypothyroidism, unspecified; Z96.653 Presence of artificial knee joint, bilateral; Z96.643 Presence of artificial hip joint, bilateral; S72.472A Torus fracture of lower end of left femur, initial encounter for closed fracture; F41.9 Anxiety disorder, unspecified; I10 Essential (primary) hypertension; V43.52XA Car driver injured in collision with other type car in traffic accident, initial encounter; Y92.410 Unspecified street and highway as the place of occurrence of the external cause; Z90.710 Acquired absence of both cervix and uterus; Z90.3 Acquired absence of stomach [part of]; Z79.899 Other long term (current) drug therapy; Z79.890 Hormone replacement therapy; Z88.1 Allergy status to other antibiotic agents; Z88.0 Allergy status to penicillin; Z88.2 Allergy status to sulfonamides; Z88.8 Allergy status to other drugs, medicaments and biological substances
CPT/HCPCS: 23650; 36415; 36430; 70450; 70486; 71045; 71260; 72125; 74177; 80048; 80053; 80307; 81001; 83605; 83735; 84100; 84484; 85025; 85610; 85730; 86850; 86900; 86901; 87086; 90471; 90715; 93005; 96365; 96366; 96375; C1713; C1776; G0390; J1100; J1580; J1650; J1885; J2250; J2270; J2405; J2550; J2704; J2795; J3010; J3370; J3475; J3490; J7050; P9016; Q9967; S0028; U0002; U0003; U0005

== ENCOUNTER 2021-04-01 13:38 | Outpatient (CLI) | payer MEDICARE, BC | END 2021-04-01 13:39 | disposition home or self-care (01) | LOC: BICRAD 13:38 | PROVIDERS: ATTEND Surgery | DX: S22.009A Unspecified fracture of unspecified thoracic vertebra, initial encounter for closed fracture (principal) | CPT/HCPCS: 72072 ==

== ENCOUNTER 2021-04-22 09:57 | Outpatient (CLI) | payer MEDICARE, BC | END 2021-04-22 09:58 | disposition home or self-care (01) | LOC: BICCT 09:57 | PROVIDERS: ATTEND Surgery | DX: S22.009D Unspecified fracture of unspecified thoracic vertebra, subsequent encounter for fracture with routine healing (principal); M48.14 Ankylosing hyperostosis [Forestier], thoracic region | CPT/HCPCS: 72128 ==